=== PATIENT | male | born 1985 | race Two or more races ===

== ENCOUNTER 2019-10-11 08:57 | Inpatient (IN) | payer OTHER ==
[2019-10-11 09:17] VITALS: BMI 30.7
--- NOTE | 2019-10-11 10:19 | HP ---
COWS - Scale Resting Pulse: 0= [place] 80 or Below Sweatin= Chills/Flushing Restless Observation: 1= Difficult to Sit Still Pupil Size: 1= Pupils >than Normal Bone or Joint Aches: 2= Severe Diffuse Aches Runny Nose/ Eye Tearin= Runny Nose/Eyes GI Upset > 30mins: 2= Nausea/Diarrhea Tremor Observation: 2= Slight Tremor Visible Yawning Observation: 2= >3x During Session Anxiety or Irritability: 2=Irritable/Anxious Goose Flesh Skin: 0=Smooth Skin COWS Score: 15 CIWA Score Nausea/Vomitin Muscle Tremors: 3 Anxiety: 3 Agitation: 3 Paroxysmal Sweats: 1-Minimal Palms Moist Orientation: 0-Oriented Tacttile Disturbances: 1-Very Mild Itch/Numbness Auditory Disturbances: 0-None Visual Disturbances: 0-None Headache: 2-Mild CIWA-Ar Total Score: 15 - Admission Criteria OASAS Guidelines: Admission for Medically Managed Detox: Requires at least one of the followin. CIWA greater than 12 2. Seizures within the past 24 hours 3. Delirium tremens within the past 24 hours 4. Hallucinations within the past 24 hours 5. Acute intervention needed for co occurring medical disorder 6. Acute intervention needed for co occurring psychiatric disorder 7. Severe withdrawal that cannot be handled at a lower level of care (continued vomiting, continued diarrhea, abnormal vital signs) requiring intravenous medication and/or fluids 8. 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 Hepatobiliary: Yes: Hepatitis C Psych: Yes: Anxiety, Depression, Other (insomnia) - Smoking History Smoking history: Current every day smoker Have you smoked in the past 12 months: Yes Aproximately how many cigarettes per day: 20 - Alcohol/Substance Use Hx Alcohol Use: Yes (2 beers per day) History of Substance Use: reports: Heroin, Prescription - Social History Usual Living Arrangement: Yes: [employer] Occupation: unemplyoed History of Recent Travel: No Admission ROS [facility] - HPI Chief Complaint: i need help to stop using heroin,xanax,cocaine abused Allergies/Adverse Reactions: Allergies Allergy/AdvReac Type Severity Reaction Status Date / Time No Known Allergies Allergy Verified 10/11/19 09:13 History of Present Illness: this 34 years old male with heroin,xanax,dependence,cocaine abused,seeking help, withdrawal symptom multiple admissions in detox,last detox 05/22/19 to 05/25/19 not completed syncope denied seizure nicotine dependence hepatitis c longest sobriety 6 months plan for rehab after detox - Ebola screening Have you traveled outside of the country in the last 21 days: No Have you had contact with anyone from an Ebola affected area: No - Review of Systems Constitutional: Chills, Loss of Appetite, Malaise, Night Sweats, Changes in sleep, Weakness EENT: reports: Tearing, Nose Congestion Respiratory: reports: No Symptoms reported Cardiac: reports: No Symptoms Reported GI: reports: Nausea, Vomiting, Abdominal cramping : reports: No Symptoms Reported Musculoskeletal: reports: Back Pain, Joint Pain, Muscle Pain Integumentary: reports: Dryness Neuro: reports: Headache, Tremors Endocrine: reports: No Symptoms Reported Hematology: reports: No Symptoms Reported Psychiatric: reports: No Sypmtoms Reported, Judgement Intact, Mood/Affect Appropiate, Orientated x3, Anxious, Depressed, other (insomnia) Patient History - Patient Medical History Hx Anemia: No Hx Asthma: Yes Hx Chronic Obstructive Pulmonary Disease (COPD): No Hx Cancer: No Hx Cardiac Disorders: No Hx Congestive Heart Failure: No Hx Hypertension: No Hx Hypercholesterolemia: No Hx Pacemaker: No HX Cerebrovascular Accident: No Hx Seizures: No Hx Dementia: No Hx Diabetes: No Hx Gastrointestinal Disorders: No Hx Liver Disease: Yes (Hep C ) Hx Genitourinary Disorders: No Hx Sexually Transmitted Disorders: No Hx Renal Disease (ESRD): No Hx Thyroid Disease: No Hx Human Immunodeficiency Virus (HIV): No (Negative tested about a year ago in 2019) Hx Hepatitis C: Yes (not treated ) Hx Depression: Yes Hx Suicide Attempt: No Hx Bipolar Disorder: No Hx Schizophrenia: No Other Medical History: no suicidal,no homicidal - Patient Surgical History Past Surgical History: No Hx Neurologic Surgery: No Hx Cataract Extraction: No Hx Cardiac Surgery: No Hx Lung Surgery: No Hx Breast Surgery: No Hx Breast Biopsy: No Hx Abdominal Surgery: No Hx Appendectomy: No Hx Cholecystectomy: No Hx Genitourinary Surgery: No Hx Section: No Hx Orthopedic Surgery: No Anesthesia Reaction: No - PPD History Previous Implant?: Yes Documented Results: Negative w/o proof Implanted On Prior [facility] Admission?: Yes Date: 11/24/17 Results: 00mm PPD to be Administered?: Yes - Smoking Cessation Smoking history: Current every day smoker Have you smoked in the past 12 months: Yes Aproximately how many cigarettes per day: 20 Cigars Per Day: 0 Hx Chewing Tobacco Use: No Initiated information on smoking cessation: Yes 'Breaking Loose' booklet given: 10/11/19 - Substance & Tx. History Hx Alcohol Use: No Hx Substance Use: Yes Substance Use Type: Heroin, Tranquilizers Hx Substance Use Treatment: Yes (last [facility] 05/22/19 to 05/25/19) - Substances abused Heroin Substance route: Injection Frequency: Daily Amount used: 25-30 bags Age of first use: 26 Date of last use: 10/10/19 Alprazolam (Xanax) Substance route: Oral Frequency: Daily Amount used: 6mg (3) 2mg pills) Age of first use: 26 Date of last use: 10/10/19 Cocaine Substance route: Injection Frequency: 1-2 times per week Amount used: 20$ Age of first use: 16 Date of last use: 10/10/19 Admission Physical Exam BHS - Vital Signs Vital Signs: Vital Signs - 24 hr 10/11/19 09:14 Temperature 96.9 F L Pulse Rate 74 Respiratory 20 Rate Blood Pressure 111/75 - Physical General Appearance: Yes: Moderate Distress, Tremorous, Irritable, Sweating, Anxious HEENTM: Yes: Normocephalic, ESHA, Pharynx Normal Respiratory: Yes: Lungs Clear, Normal Breath Sounds, No Respiratory Distress Neck: Yes: Within Normal Limits, Supple, Trachea in good position Breast: Yes: Within Normal Limits Cardiology: Yes: Within Normal Limits, Regular Rhythm, Regular Rate, S1, S2 Abdominal: Yes: Within Normal Limits, Normal Bowel Sounds, Non Tender, Flat, Soft Genitourinary: Yes: Within Normal Limits Back: Yes: Muscle Spasm Musculoskeletal: Yes: Back pain, Joint Stiffness, Muscle Pain Extremities: Yes: Within Normal Limits, Normal Range of Motion, Tremors 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, Fully Oriented, Alert, Motor Strength 5/5 Integumentary: Yes: Dry, Track [place] Lymphatic: Yes: Within Normal Limits - Diagnostic (1) Opioid dependence with withdrawal Current Visit: Yes Status: Acute (2) Cocaine dependence Current Visit: Yes Status: Acute Qualifiers: Substance use status: uncomplicated Qualified Code(s): F14.20 - Cocaine dependence, uncomplicated (3) Sedative, hypnotic or anxiolytic dependence with withdrawal, uncomplicated Current Visit: Yes Status: Acute (4) Hepatitis C Current Visit: No Status: Chronic Qualifiers: Viral hepatitis chronicity: chronic Hepatic coma status: without hepatic coma Qualified Code(s): B18.2 - Chronic viral hepatitis C Comment: not treated (5) Nicotine dependence Current Visit: No Status: Chronic Qualifiers: Nicotine product type: cigarettes Substance use status: in withdrawal Qualified Code(s): F17.213 - Nicotine dependence, cigarettes, with withdrawal (6) Weight loss Current Visit: No Status: Chronic (7) IVDU (intravenous drug user) Current Visit: Yes Status: Acute Cleared for Admission S - Detox or Rehab [facility] Level of Care: Medically Managed Detox Regimen/Protocol: Methadone Breathalyzer - Breathalyzer Breathalyzer: 0 POC Urine test - Test device test lot number: not applicable Urine Drug Screen - Test Device Lot number: [id number] Expiration date: 05/02/21 - Control Is test valid?: Yes - Results Drug screen NEGATIVE: No Urine drug screen results: MADI-Cocaine, FEN-Fentanyl, MOP-Opiates Inpatient Rehab Admission - Rehab Decision to Admit Inpatient rehab admission?: No
[2019-10-11] MEDS ORDERED: ACETAMINOPHEN 325 MG TABLET (FP) PO PRN ×2 (10:33)
[2019-10-11] MEDS ORDERED: hydrOXYzine PAMOATE 25 MG CAPSULE (FP) PO PRN (10:33)
[2019-10-11] MEDS ORDERED: MENTHOL/PHENOL 1 EACH UD MM PRN (10:33)
[2019-10-11] MEDS ORDERED: BISMUTH SUBSALICYLATE 262 MG/15 ML BTL PO PRN (10:33)
[2019-10-11] MEDS ORDERED: NICOTINE POLACRILEX 2 MG GUM BUC PRN (10:33)
[2019-10-11] MEDS ORDERED: cloNIDine HCL 0.1 MG TABLET PO PRN (10:33)
[2019-10-11] MEDS ORDERED: METHOCARBAMOL 500 MG TABLET PO PRN (10:33)
[2019-10-11] MEDS ORDERED: MAGNESIUM CITRATE 300 ML BOTTLE PO PRN (10:33)
[2019-10-11] MEDS ORDERED: MAGNESIUM HYDROX 2400MG/30ML ORAL SUSPENSION 30 ML CUP PO PRN (10:33)
[2019-10-11] MEDS ORDERED: MAG HYDROX/AL HYDROX/SIMETH 30 ML UNIT-DOSE CUP PO PRN (10:33)
[2019-10-11] MEDS ORDERED: METHADONE HCL 10 MG TABLET (FOR DETOX USE ONLY) PO ONE (12:05)
[2019-10-11] MEDS: diazePAM 5 MG TABLET PO PRN ×2 (13:13→22:14)
[2019-10-11 14:04] LABS: HEMATOCRIT 38.8 % (35.4-49); HEMOGLOBIN 12.7 GM/dL (11.7-16.9); MCHC 32.6 g/dl (32.0-35.9); MEAN CELL VOLUME 79.6 fl (80-96); MEAN PLT VOLUME 9.7 fl (7.5-11.1); PLATELET COUNT 219 K/MM3 (134-434); RBC 4.88 M/mm3 (4.00-5.60); RDW 15.3 % (11.9-15.9); WHITE BLOOD COUNT 7.5 K/mm3 (4.0-10.0)
[2019-10-11 14:31] LABS: ALBUMIN 3.6 g/dl (3.4-5.0); BILIRUBIN,TOTAL 0.6 mg/dL (0.2-1); BLOOD UREA NITROGEN 19.5 mg/dL (7-18); CALCIUM 8.5 mg/dL (8.5-10.1); CREATININE 0.9 mg/dL (0.55-1.3); POTASSIUM 4.1 mmol/L (3.5-5.1)
--- NOTE | 2019-10-11 16:08 | CONSULT ---
[facility] Psychiatric Consult - Data Date of interview: 10/11/19 Admission source: [facility] Identifying data: Patient is a 34 year old male, father of three , unemployed, domiciled, and is supported with food stamps. This is one of multiple admissions for patient. Patient admitted to for opiate and cocaine dependence. Substance Abuse History: Smoking Cessation. Smoking history: Current every day smoker. Have you smoked in the past 12 months: Yes. Aproximately how many cigarettes per day: 20. Cigars Per Day: 0. Hx Chewing Tobacco Use: No. Initiated information on smoking cessation: Yes. 'Breaking Loose' booklet given : 10/11/19. - Substance & Tx. History. Hx Alcohol Use: No. Hx Substance Use: Yes. Substance Use Type: Heroin, Tranquilizers. Hx Substance Use Treatment: Yes (last [facility] 05/22/19 to 05/25/19). - Substances abused. Heroin. Substance route: Injection. Frequency: Daily. Amount used: 25-30 bags. Age of first use: 26. Date of last use: 10/10/19. Alprazolam (Xanax). Substance route: Oral. Frequency: Daily. Amount used: 6mg (3) 2mg pills). Age of first use: 26. Date of last use: 10/10/19. Cocaine. Substance route : Injection. Frequency: 1-2 times per week. Amount used: 20$. Age of first use: 16. Date of last use: 10/10/19 Medical History: Medical profile is remarkable for hepatitis C and a history of treatment for chlamydia Psychiatric History: Patient denies history of psychiatric hospitalization and suicide attempt. Mr. Golden reports seeing an outpatient psychiatrist when he was 15 years of age who prescribed him seroquel and other psychotropic medications he can't recall. He reports being diagnosed with MDD. States he saw the psychiatrist one time and never returned. As per Dr. Villalpando note patient reported a history of one psychiatric hospitalization at [facility] at 23 years of age after a suicide attempt by wrist cutting. Patient currently denies OPD and is not on psychotropic medications. Mr. Golden reports difficulty sleeping which is resolved when he accepts seroquel. At present patient denies suicidal/homicidal ideation. Physical/Sexual Abuse/Trauma History: denies. Mental Status Exam - Mental Status Exam Alert and Oriented to: Time, Place, Person Cognitive Function: Good Patient Appearance: Well Groomed Mood: Withdrawn Affect: Mood Congruent Patient Behavior: Fatigued Speech Pattern: Appropriate Voice Loudness: Normal Thought Process: Goal Oriented Thought Disorder: Not Present Hallucinations: Denies Suicidal Ideation: Denies Homicidal Ideation: Denies Insight/Judgement: Poor Sleep: Poorly Appetite: Fair Muscle strength/Tone: Normal Gait/Station: Normal Psychiatric Findings - Problem List ([place] 1, 2,3) (1) Substance-induced sleep disorder Status: Acute (2) Cocaine dependence Status: Acute Qualifiers: Substance use status: uncomplicated Qualified Code(s): F14.20 - Cocaine dependence, uncomplicated (3) Opioid dependence with withdrawal Status: Acute (4) Sedative, hypnotic or anxiolytic dependence with withdrawal, uncomplicated Status: Acute (5) Substance induced mood disorder Status: Suspected - Initial Treatment Plan Initial Treatment Plan: Psychoeducation provided. Detoxification in progress. Will order Seroquel 100mg HS. Benefits and side effects discussed. Verbal consent given.
[2019-10-11] MEDS: AMMONIUM LACTATE 12% LOTION 225 GM BOTTLE TP SCH (22:11)
[2019-10-11] MEDS: THIAMINE HCL 100 MG TABLET (FP) PO SCH (22:12)
[2019-10-11] MEDS: QUEtiapine FUMARATE 100 MG TABLET (FP) PO SCH (22:12)
[2019-10-11] MEDS: MELATONIN 5 MG TABLETS PO PRN (22:15)
[2019-10-12] MEDS ORDERED: METHADONE HCL 5 MG TABLET (FOR DETOX USE ONLY) ONE (08:42)
[2019-10-12] MEDS ORDERED: METHADONE HCL 10 MG TABLET (FOR DETOX USE ONLY) ONE (08:42)
[2019-10-12] MEDS ORDERED: METHADONE (DETOX) 20 MG, METHADONE (DETOX) 5 MG PO ONE (10:00)
[2019-10-12] MEDS: PRENATAL VITAMINS W/ FOLIC ACID TABLET (FP) PO SCH (10:14)
[2019-10-12] MEDS: diazePAM 5 MG TABLET PO PRN ×3 (10:14→22:17)
[2019-10-12] MEDS: AMMONIUM LACTATE 12% LOTION 225 GM BOTTLE TP SCH ×2 (10:15→22:19)
--- NOTE | 2019-10-12 10:29 | PN ---
[facility] CIWA - CIWA Score Nausea/Vomitin-Mild Nausea/No Vomiting Muscle Tremors: 3 Anxiety: 3 Agitation: 3 Paroxysmal Sweats: 1-Minimal Palms Moist Orientation: 0-Oriented Tacttile Disturbances: 0-None Auditory Disturbances: 0-None Visual Disturbances: 0-None Headache: 0-None Present CIWA-Ar Total Score: 11 BHS COWS - Scale Resting Pulse: 1= [place] 81-100 Sweatin= Chills/Flushing Restless Observation: 1= Difficult to Sit Still Pupil Size: 1= Pupils >than Normal Bone or Joint Aches: 1= Mild Discomfort Runny Nose/ Eye Tearin= Nasal Congestion GI Upset > 30mins: 1= Stomach Cramp Tremor Observation of Outstretched Hands: 1= Tremor [place], Not Seen Yawning Observation: 1= 1-2x During Session Anxiety or Irritability: 1=Feels Anxious/Irritable Goose Flesh Skin: 0=Smooth Skin COWS Score: 10 [facility] Progress Note (SOAP) Subjective: Pt admitted with heroin,xanax dependence,cocaine use disorders.Pt states doing well with the detox Vital Signs - 24 hr 10/11/19 10/11/19 10/11/19 13:10 17:48 22:36 Temperature 96.7 F L 98.4 F 97.7 F Pulse Rate 68 72 81 Respiratory 18 18 18 Rate Blood Pressure 103/68 102/57 L 98/55 L 10/12/19 10/12/19 10/12/19 00:26 03:30 05:50 Temperature 97.1 F L Pulse Rate 54 L Respiratory 18 16 18 Rate Blood Pressure 95/59 L 10/12/19 09:12 Temperature 96.7 F L Pulse Rate 68 Respiratory 18 Rate Blood Pressure 92/50 L Laboratory Tests 10/11/19 10/11/19 10/11/19 10:55 10:55 10:55 WBC 7.5 RBC 4.88 Hgb 12.7 Hct 38.8 MCV 79.6 L MCH 26.0 MCHC 32.6 RDW 15.3 Plt Count 219 D MPV 9.7 D Sodium 134 L Potassium 4.1 Chloride 101 Carbon Dioxide 25 Anion Gap 7 L BUN 19.5 H Creatinine 0.9 Est GFR (CKD-EPI)AfAm 126.90 Est GFR (CKD-EPI)NonAf 109.49 Random Glucose 98 Calcium 8.5 Total Bilirubin 0.6 AST 46 H ALT 62 H Alkaline Phosphatase 107 Total Protein 8.0 Albumin 3.6 RPR Titer Nonreactive labs and VS WNL a/p: continue detox protocols for heroin,xanax dependence. Pt would like ensure- ordered
[2019-10-12] MEDS: QUEtiapine FUMARATE 100 MG TABLET (FP) PO SCH (22:16)
[2019-10-12] MEDS: THIAMINE HCL 100 MG TABLET (FP) PO SCH (22:16)
[2019-10-12] MEDS: MELATONIN 5 MG TABLETS PO PRN (22:16)
[2019-10-13] MEDS ORDERED: METHADONE HCL 10 MG TABLET (FOR DETOX USE ONLY) PO ONE (10:00)
--- NOTE | 2019-10-13 10:19 | PN ---
[facility] CIWA - CIWA Score Nausea/Vomitin-No Nausea/No Vomiting Muscle Tremors: 2 Anxiety: 3 Agitation: 0-Normal Activity Paroxysmal Sweats: 3 Orientation: 0-Oriented Tacttile Disturbances: 1-Very Mild Itch/Numbness Auditory Disturbances: 0-None Visual Disturbances: 0-None Headache: 2-Mild CIWA-Ar Total Score: 11 BHS COWS - Scale Resting Pulse: 0= [place] 80 or Below Sweatin= Beads of Sweat on Face Restless Observation: 1= Difficult to Sit Still Pupil Size: 0= Normal to Room Light Bone or Joint Aches: 2= Severe Diffuse Aches Runny Nose/ Eye Tearin= None GI Upset > 30mins: 0= None Tremor Observation of Outstretched Hands: 2= Slight Tremor Visible Yawning Observation: 1= 1-2x During Session Anxiety or Irritability: 2=Irritable/Anxious Goose Flesh Skin: 0=Smooth Skin COWS Score: 11 S Progress Note (SOAP) Subjective: c/o anxiety, shakes, headache, sweats, and irritability. Objective: 10/13/19 10:18 Vital Signs 10/13/19 10/13/19 10/13/19 03:30 06:38 09:28 Temperature 97.9 F 97 F L Pulse Rate 54 L 73 Respiratory 18 18 16 Rate Blood Pressure 98/50 L 98/60 Laboratory Last Values WBC 7.5 K/mm3 (4.0-10.0) 10/11/19 10:55 RBC 4.88 M/mm3 (4.00-5.60) 10/11/19 10:55 Hgb 12.7 GM/dL (11.7-16.9) 10/11/19 10:55 Hct 38.8 % (35.4-49) 10/11/19 10:55 MCV 79.6 fl (80-96) L 10/11/19 10:55 MCH 26.0 pg (25.7-33.7) 10/11/19 10:55 MCHC 32.6 g/dl (32.0-35.9) 10/11/19 10:55 RDW 15.3 % (11.9-15.9) 10/11/19 10:55 Plt Count 219 K/MM3 (134-434) D 10/11/19 10:55 MPV 9.7 fl (7.5-11.1) D 10/11/19 10:55 Sodium 134 mmol/L (136-145) L 10/11/19 10:55 Potassium 4.1 mmol/L (3.5-5.1) 10/11/19 10:55 Chloride 101 mmol/L (98-107) 10/11/19 10:55 Carbon Dioxide 25 mmol/L (21-32) 10/11/19 10:55 Anion Gap 7 MMOL/L (8-16) L 10/11/19 10:55 BUN 19.5 mg/dL (7-18) H 10/11/19 10:55 Creatinine 0.9 mg/dL (0.55-1.3) 10/11/19 10:55 Est GFR (CKD-EPI)AfAm 126.90 10/11/19 10:55 Est GFR (CKD-EPI)NonAf 109.49 10/11/19 10:55 Random Glucose 98 mg/dL (74-106) 10/11/19 10:55 Calcium 8.5 mg/dL (8.5-10.1) 10/11/19 10:55 Total Bilirubin 0.6 mg/dL (0.2-1) 10/11/19 10:55 AST 46 U/L (15-37) H 10/11/19 10:55 ALT 62 U/L (13-61) H 10/11/19 10:55 Alkaline Phosphatase 107 U/L (45-117) 10/11/19 10:55 Total Protein 8.0 g/dl (6.4-8.2) 10/11/19 10:55 Albumin 3.6 g/dl (3.4-5.0) 10/11/19 10:55 RPR Titer Nonreactive (NONREACTIVE) 10/11/19 10:55 Labs noted. Assessment: 10/13/19 10:18 AOX3, in no acute respiratory distress. Full ROM, ambulating in the unit. Withdrawal symptoms. Plan: continue detox. Increase fluids.
[2019-10-13] MEDS: PRENATAL VITAMINS W/ FOLIC ACID TABLET (FP) PO SCH (10:25)
[2019-10-13] MEDS: diazePAM 5 MG TABLET PO PRN ×3 (10:25→22:10)
[2019-10-13] MEDS: AMMONIUM LACTATE 12% LOTION 225 GM BOTTLE TP SCH ×2 (10:27→22:10)
[2019-10-13] MEDS: IBUPROFEN 400 MG TABLET (FP) PO PRN (16:58)
[2019-10-13] MEDS: QUEtiapine FUMARATE 100 MG TABLET (FP) PO SCH (22:10)
[2019-10-13] MEDS: THIAMINE HCL 100 MG TABLET (FP) PO SCH (22:10)
[2019-10-14] MEDS: diazePAM 5 MG TABLET PO PRN ×2 (05:51→10:14)
[2019-10-14] MEDS ORDERED: METHADONE HCL 5 MG TABLET (FOR DETOX USE ONLY) ONE (08:36)
[2019-10-14] MEDS ORDERED: METHADONE HCL 10 MG TABLET (FOR DETOX USE ONLY) ONE (08:36)
[2019-10-14] MEDS ORDERED: METHADONE (DETOX) 10 MG, METHADONE (DETOX) 5 MG PO ONE (10:00)
[2019-10-14] MEDS: PRENATAL VITAMINS W/ FOLIC ACID TABLET (FP) PO SCH (10:13)
[2019-10-14] MEDS: AMMONIUM LACTATE 12% LOTION 225 GM BOTTLE TP SCH ×2 (10:13→22:44)
--- NOTE | 2019-10-14 15:15 | PN ---
S CIWA - CIWA Score Nausea/Vomitin-No Nausea/No Vomiting Muscle Tremors: 2 Anxiety: 3 Agitation: 1-Slight > Activity Paroxysmal Sweats: 2 Orientation: 0-Oriented Tacttile Disturbances: 0-None Auditory Disturbances: 0-None Visual Disturbances: 0-None Headache: 0-None Present CIWA-Ar Total Score: 8 BHS COWS - Scale Resting Pulse: 0= [place] 80 or Below Sweatin= Chills/Flushing Restless Observation: 0= Sits Still Pupil Size: 1= Pupils >than Normal Bone or Joint Aches: 1= Mild Discomfort Runny Nose/ Eye Tearin= None GI Upset > 30mins: 1= Stomach Cramp Tremor Observation of Outstretched Hands: 2= Slight Tremor Visible Yawning Observation: 1= 1-2x During Session Anxiety or Irritability: 1=Feels Anxious/Irritable Goose Flesh Skin: 0=Smooth Skin COWS Score: 8 S Progress Note (SOAP) Subjective: 34 years old male admitted on 10/11/19 for benzo and opiate withdrawal sx management treating with clonidine prn and methadone detox regimen ate breakfast and lunch feeling ok today encourage to attend behavior and psychosocial therapies while in detox Objective: 10/14/19 15:14 Vital Signs Temperature 98.8 F 10/14/19 13:42 Pulse Rate 74 10/14/19 13:42 Respiratory Rate 18 10/14/19 13:42 Blood Pressure 103/70 10/14/19 13:42 O2 Sat by Pulse Oximetry (%) Laboratory Last Values WBC 7.5 K/mm3 (4.0-10.0) 10/11/19 10:55 RBC 4.88 M/mm3 (4.00-5.60) 10/11/19 10:55 Hgb 12.7 GM/dL (11.7-16.9) 10/11/19 10:55 Hct 38.8 % (35.4-49) 10/11/19 10:55 MCV 79.6 fl (80-96) L 10/11/19 10:55 MCH 26.0 pg (25.7-33.7) 10/11/19 10:55 MCHC 32.6 g/dl (32.0-35.9) 10/11/19 10:55 RDW 15.3 % (11.9-15.9) 10/11/19 10:55 Plt Count 219 K/MM3 (134-434) D 10/11/19 10:55 MPV 9.7 fl (7.5-11.1) D 10/11/19 10:55 Sodium 134 mmol/L (136-145) L 10/11/19 10:55 Potassium 4.1 mmol/L (3.5-5.1) 10/11/19 10:55 Chloride 101 mmol/L (98-107) 10/11/19 10:55 Carbon Dioxide 25 mmol/L (21-32) 10/11/19 10:55 Anion Gap 7 MMOL/L (8-16) L 10/11/19 10:55 BUN 19.5 mg/dL (7-18) H 10/11/19 10:55 Creatinine 0.9 mg/dL (0.55-1.3) 10/11/19 10:55 Est GFR (CKD-EPI)AfAm 126.90 10/11/19 10:55 Est GFR (CKD-EPI)NonAf 109.49 10/11/19 10:55 Random Glucose 98 mg/dL (74-106) 10/11/19 10:55 Calcium 8.5 mg/dL (8.5-10.1) 10/11/19 10:55 Total Bilirubin 0.6 mg/dL (0.2-1) 10/11/19 10:55 AST 46 U/L (15-37) H 10/11/19 10:55 ALT 62 U/L (13-61) H 10/11/19 10:55 Alkaline Phosphatase 107 U/L (45-117) 10/11/19 10:55 Total Protein 8.0 g/dl (6.4-8.2) 10/11/19 10:55 Albumin 3.6 g/dl (3.4-5.0) 10/11/19 10:55 RPR Titer Nonreactive (NONREACTIVE) 10/11/19 10:55 lab noted Assessment: 10/14/19 15:15 benzo and opiate withdrawal Plan: clonidine prn and methadone regimen
[2019-10-14] MEDS: IBUPROFEN 400 MG TABLET (FP) PO PRN (17:06)
[2019-10-14] MEDS: QUEtiapine FUMARATE 100 MG TABLET (FP) PO SCH (22:33)
[2019-10-14] MEDS: MELATONIN 5 MG TABLETS PO PRN (22:33)
[2019-10-14] MEDS: THIAMINE HCL 100 MG TABLET (FP) PO SCH (22:33)
[2019-10-15 09:15] VITALS: BP 111/74; PULSE 82; TEMP 97.3
[2019-10-15] MEDS ORDERED: METHADONE HCL 10 MG TABLET (FOR DETOX USE ONLY) PO ONE (10:00)
--- NOTE | 2019-10-15 13:52 | DS ---
[facility] Detox Discharge Summary Admission Date: 10/11/19 Discharge Date: 10/15/19 - History Present History: Opioid Dependence, Sedative Dependence Additional Comments: 34 years old male admitted on 10/11/19 for benzo and opiate withdrawal sx management treated with clonidine prn and methadone detox regimens patient prefers to leave one day early as estimated discharge date of 10/16/19 case discussed with the nurse routine discharge is appropriated patient is alert oriented x 3 respiratory clear lungs bilaterally on auscultation skin warm and dry extremities full range of motion - Physical Exam Results Vital Signs: Vital Signs Temperature 97.3 F L 10/15/19 09:15 Pulse Rate 82 10/15/19 09:15 Respiratory Rate 16 10/15/19 09:15 Blood Pressure 111/74 10/15/19 09:15 O2 Sat by Pulse Oximetry (%) Pertinent Admission Physical Exam Findings: benzo opiate withdrawal Laboratory Last Values WBC 7.5 K/mm3 (4.0-10.0) 10/11/19 10:55 RBC 4.88 M/mm3 (4.00-5.60) 10/11/19 10:55 Hgb 12.7 GM/dL (11.7-16.9) 10/11/19 10:55 Hct 38.8 % (35.4-49) 10/11/19 10:55 MCV 79.6 fl (80-96) L 10/11/19 10:55 MCH 26.0 pg (25.7-33.7) 10/11/19 10:55 MCHC 32.6 g/dl (32.0-35.9) 10/11/19 10:55 RDW 15.3 % (11.9-15.9) 10/11/19 10:55 Plt Count 219 K/MM3 (134-434) D 10/11/19 10:55 MPV 9.7 fl (7.5-11.1) D 10/11/19 10:55 Sodium 134 mmol/L (136-145) L 10/11/19 10:55 Potassium 4.1 mmol/L (3.5-5.1) 10/11/19 10:55 Chloride 101 mmol/L (98-107) 10/11/19 10:55 Carbon Dioxide 25 mmol/L (21-32) 10/11/19 10:55 Anion Gap 7 MMOL/L (8-16) L 10/11/19 10:55 BUN 19.5 mg/dL (7-18) H 10/11/19 10:55 Creatinine 0.9 mg/dL (0.55-1.3) 10/11/19 10:55 Est GFR (CKD-EPI)AfAm 126.90 10/11/19 10:55 Est GFR (CKD-EPI)NonAf 109.49 10/11/19 10:55 Random Glucose 98 mg/dL (74-106) 10/11/19 10:55 Calcium 8.5 mg/dL (8.5-10.1) 10/11/19 10:55 Total Bilirubin 0.6 mg/dL (0.2-1) 10/11/19 10:55 AST 46 U/L (15-37) H 10/11/19 10:55 ALT 62 U/L (13-61) H 10/11/19 10:55 Alkaline Phosphatase 107 U/L (45-117) 10/11/19 10:55 Total Protein 8.0 g/dl (6.4-8.2) 10/11/19 10:55 Albumin 3.6 g/dl (3.4-5.0) 10/11/19 10:55 RPR Titer Nonreactive (NONREACTIVE) 10/11/19 10:55 lab noted - Treatment Hospital Course: Detox Protocol Followed, Detoxed Safely, Responded well, Discharged Condition Good, Rehab Referral Accepted Patient has Accept[facility] - Medication Discharge Medications: Ambulatory Orders Quetiapine Fumarate [Seroquel -] 100 mg PO HS 10/11/19 - Diagnosis (1) Opioid dependence with withdrawal Status: Acute (2) Sedative, hypnotic or anxiolytic dependence with withdrawal, uncomplicated Status: Acute (3) Substance induced mood disorder Status: Suspected (4) Hepatitis C Status: Chronic Qualifiers: Viral hepatitis chronicity: chronic Hepatic coma status: without hepatic coma Qualified Code(s): B18.2 - Chronic viral hepatitis C (5) Nicotine dependence Status: Acute Qualifiers: Nicotine product type: cigarettes Substance use status: in withdrawal Qualified Code(s): F17.213 - Nicotine dependence, cigarettes, with withdrawal - AMA Did Patient Leave Against Medical Advice: No CIWA Score - CIWA Score Nausea/Vomitin-No Nausea/No Vomiting Muscle Tremors: 1-None Visible, but [place] Anxiety: 2 Agitation: 0-Normal Activity Paroxysmal Sweats: 1-Minimal Palms Moist Orientation: 0-Oriented Tacttile Disturbances: 0-None Auditory Disturbances: 0-None Visual Disturbances: 0-None Headache: 0-None Present CIWA-Ar Total Score: 4 COWS (PN) - Opiate Withdrawal Resting Pulse: 1= [place] 81-100 Sweatin= No chills or Flushing Restless Observation: 0= Sits Still Pupil Size: 0= Normal to Room Light Bone or Joint Aches: 0= None Runny Nose/ Eye Tearin= None GI Upset > 30mins: 0= None Tremor Observation of Outstretched Hands: 1= Tremor [place], Not Seen Yawning Observation: 0= None Anxiety or Irritability: 1=Feels Anxious/Irritable Goose Flesh Skin: 0=Smooth Skin COWS Score: 3
[2019-10-16] MEDS ORDERED: METHADONE HCL 5 MG TABLET (FOR DETOX USE ONLY) PO ONE (06:00)
== END 2019-10-15 09:42 | disposition home or self-care (01) | DRG 773 ==
LOC: YASAS 08:57 → Y3N 11:33
PROVIDERS: ADMIT Allergy & Immunology; ATTEND Allergy & Immunology
PROC: HZ2ZZZZ Detoxification Services for Substance Abuse Treatment (ICD-10-PCS; principal; 2019-10-11)
DX: F11.23 Opioid dependence with withdrawal (principal); F13.230 Sedative, hypnotic or anxiolytic dependence with withdrawal, uncomplicated; F14.20 Cocaine dependence, uncomplicated; F17.213 Nicotine dependence, cigarettes, with withdrawal; F19.24 Other psychoactive substance dependence with psychoactive substance-induced mood disorder; F19.282 Other psychoactive substance dependence with psychoactive substance-induced sleep disorder; J45.909 Unspecified asthma, uncomplicated; B18.2 Chronic viral hepatitis C; R63.4 Abnormal weight loss; Z87.438 Personal history of other diseases of male genital organs
CPT/HCPCS: 36415; 80053; 85027; 86593

== ENCOUNTER 2019-12-11 08:16 | Inpatient (IN) | payer OTHER ==
--- NOTE | 2019-12-11 08:32 | BHS.RME ---
Substance Use & Tx History - Substance Use History Opiates (Heroin) Substance amount: 15-20 bags Frequency of use: Daily Substance route: Injection (ex: intravenous or skin popping) Date of Last Use: 12/10/19 Benzodiazepines Substance amount: Xanax 2 mg x 10 tabs Frequency of use: Daily Substance route: Oral Date of Last Use: 12/10/19 - Last Treatment Treatment type: Substance Use Disorder (SUNI) Physical/Psych/Mental Status - Behavior Eye Contact: Decreased - Cooperativeness Cooperativeness: Cooperative - Thinking Thought Processes: Tight Thought content: Future oriented - Physical Health Problems Is patient presently having any pain?: Yes (gnlz body ache) Does patient presently have any injuries (include location): No Does patient currently have a fever: No Is patient : No COWS - Scale Resting Pulse: 0= [place] 80 or Below Sweatin= Chills/Flushing Restless Observation: 1= Difficult to Sit Still Pupil Size: 0= Normal to Room Light Bone or Joint Aches: 2= Severe Diffuse Aches Runny Nose/ Eye Tearin= Runny Nose/Eyes GI Upset > 30mins: 1= Stomach Cramp Tremor Observation: 2= Slight Tremor Visible Yawning Observation: 0= None Anxiety or Irritability: 1=Feels Anxious/Irritable Goose Flesh Skin: 0=Smooth Skin COWS Score: 10
[2019-12-11 08:51] VITALS: BMI 30.7
--- NOTE | 2019-12-11 08:54 | HP ---
COWS - Scale Resting Pulse: 0= [place] 80 or Below Sweatin= Chills/Flushing Restless Observation: 1= Difficult to Sit Still Pupil Size: 0= Normal to Room Light Bone or Joint Aches: 2= Severe Diffuse Aches Runny Nose/ Eye Tearin= Runny Nose/Eyes GI Upset > 30mins: 1= Stomach Cramp Tremor Observation: 2= Slight Tremor Visible Yawning Observation: 0= None Anxiety or Irritability: 1=Feels Anxious/Irritable Goose Flesh Skin: 0=Smooth Skin COWS Score: 10 CIWA Score - Admission Criteria OASAS Guidelines: Admission for Medically Managed Detox: Requires at least one of the followin. CIWA greater than 12 2. Seizures within the past 24 hours 3. Delirium tremens within the past 24 hours 4. Hallucinations within the past 24 hours 5. Acute intervention needed for co occurring medical disorder 6. Acute intervention needed for co occurring psychiatric disorder 7. Severe withdrawal that cannot be handled at a lower level of care (continued vomiting, continued diarrhea, abnormal vital signs) requiring intravenous medication and/or fluids 8. Admitting History and Physical - Admission Chief Complaint: Mr. Golden presents to [facility] requesting detox from heroin and benzos. History of Present Illness: Mr. Golden presents to [facility] requesting detox from heroin and benzos. He as last admitted here between October 11 and October 15 for detox. PMH: Hep C untx PSH: none Psych: none SOC: lives with cousin Legal: no pending cases Substance use history Heroin: 15-20 bags, IV daily, first use age 27y, last use yesterday, no methadone program, no hx of OD Nicotine; one ppd Benzos: Xanax 2 mg x 10 tabs daily, first use age 28 y, last use yesterday Cocaine: denies use History Source: Patient Limitations to Obtaining History: No Limitations - Past Medical History LEASE OPERATOR: Yes: Syncope Hepatobiliary: Yes: Hepatitis C Psych: Yes: Anxiety, Depression, Other (insomnia) - Smoking History Smoking history: Current every day smoker Have you smoked in the past 12 months: Yes Aproximately how many cigarettes per day: 20 - Alcohol/Substance Use Hx Alcohol Use: No History of Substance Use: reports: Heroin, Prescription - Social History Occupation: unemplyoed History of Recent Travel: No Admission ROS BHS - HPI Allergies/Adverse Reactions: Allergies Allergy/AdvReac Type Severity Reaction Status Date / Time No Known Allergies Allergy Verified 12/11/19 08:42 Exam Limitations: No Limitations - Ebola screening Have you traveled outside of the country in the last 21 days: No Have you had contact with anyone from an Ebola affected area: No Have you been sick,other than usual withdrawal symptoms: No Do you have a fever: No - Review of Systems Constitutional: Unintentional Wgt. Loss EENT: reports: No Symptoms Reported Respiratory: reports: No Symptoms reported Cardiac: reports: No Symptoms Reported GI: reports: Nausea : reports: No Symptoms Reported Musculoskeletal: reports: Back Pain Integumentary: reports: No Symptoms Reported Neuro: reports: No Symptoms reported Endocrine: reports: No Symptoms Reported Hematology: reports: No Symptoms Reported Psychiatric: reports: Anxious Patient History - Patient Medical History Hx Anemia: No Hx Asthma: Yes Hx Chronic Obstructive Pulmonary Disease (COPD): No Hx Cancer: No Hx Cardiac Disorders: No Hx Congestive Heart Failure: No Hx Hypertension: No Hx Hypercholesterolemia: No Hx Pacemaker: No HX Cerebrovascular Accident: No Hx Seizures: No Hx Dementia: No Hx Diabetes: No Hx Gastrointestinal Disorders: No Hx Liver Disease: Yes (Hep C , untreated) Hx Genitourinary Disorders: No Hx Sexually Transmitted Disorders: No Hx Renal Disease (ESRD): No Hx Thyroid Disease: No Hx Human Immunodeficiency Virus (HIV): No (Negative tested about a year ago in 2019) Hx Hepatitis C: Yes (not treated ) Hx Depression: Yes Hx Suicide Attempt: No Hx Bipolar Disorder: No Hx Schizophrenia: No - Patient Surgical History Past Surgical History: No Hx Neurologic Surgery: No Hx Cataract Extraction: No Hx Cardiac Surgery: No Hx Lung Surgery: No Hx Breast Surgery: No Hx Breast Biopsy: No Hx Abdominal Surgery: No Hx Appendectomy: No Hx Cholecystectomy: No Hx Genitourinary Surgery: No Hx Section: No Hx Orthopedic Surgery: No Anesthesia Reaction: No - PPD History Date: 11/24/17 Results: 00mm - Smoking Cessation Smoking history: Current every day smoker Have you smoked in the past 12 months: Yes Aproximately how many cigarettes per day: 20 Cigars Per Day: 0 Hx Chewing Tobacco Use: No Initiated information on smoking cessation: Yes 'Breaking Loose' booklet given: 12/11/19 - Substances abused Heroin Substance route: Injection Frequency: Daily Amount used: 15-20 BAGS Age of first use: 27 Date of last use: 12/10/19 Alprazolam (Xanax) Substance route: Oral Frequency: Daily Amount used: 10 (2mg) Age of first use: 28 Date of last use: 12/10/19 Admission Physical Exam [facility] - Physical General Appearance: Yes: Appropriately Dressed, Anxious HEENTM: Yes: Within Normal Limits Respiratory: Yes: Lungs Clear Neck: Yes: Within Normal Limits Breast: Yes: Breast Exam Deferred Cardiology: Yes: Regular Rate, S1, S2 Abdominal: Yes: Non Tender, Flat, Soft, Decreased BS Genitourinary: Yes: Other (deferred) Back: Yes: Normal Inspection Musculoskeletal: Yes: Within Normal Limits Extremities: Yes: Within Normal Limits Neurological: Yes: Within Normal Limits Integumentary: Yes: Track [place] (no sign of infection) - Diagnostic (1) IVDU (intravenous drug user) Current Visit: Yes Status: Acute (2) Nicotine dependence Current Visit: Yes Status: Acute Qualifiers: Nicotine product type: cigarettes Substance use status: in withdrawal Qualified Code(s): F17.213 - Nicotine dependence, cigarettes, with withdrawal (3) Opioid dependence with withdrawal Current Visit: Yes Status: Acute (4) Sedative, hypnotic or anxiolytic dependence with withdrawal, uncomplicated Current Visit: Yes Status: Chronic Cleared for Admission [facility] - Detox or Rehab [facility] Level of Care: Medically Managed Detox Regimen/Protocol: Methadone Breathalyzer - Breathalyzer Breathalyzer: 0 POC Urine test - Test device test lot number: not applicable Urine Drug Screen - Test Device Lot number: [id number] Expiration date: 05/02/21 - Control Is test valid?: Yes - Results Drug screen NEGATIVE: No Urine drug screen results: MADI-Cocaine, FEN-Fentanyl, MOP-Opiates, BZO- Benzodiazepines Inpatient Rehab Admission - Rehab Decision to Admit Inpatient rehab admission?: No
[2019-12-11] MEDS ORDERED: METHADONE HCL 10 MG TABLET (FOR DETOX USE ONLY) PO ONE (09:41)
[2019-12-11] MEDS ORDERED: IBUPROFEN 400 MG TABLET (FP) PO PRN (09:41)
[2019-12-11] MEDS ORDERED: MENTHOL/PHENOL 1 EACH UD MM PRN (09:41)
[2019-12-11] MEDS ORDERED: MAG HYDROX/AL HYDROX/SIMETH 30 ML UNIT-DOSE CUP PO PRN (09:41)
[2019-12-11] MEDS ORDERED: MAGNESIUM CITRATE 300 ML BOTTLE PO PRN (09:41)
[2019-12-11] MEDS ORDERED: NICOTINE POLACRILEX 2 MG GUM BUC PRN (09:41)
[2019-12-11] MEDS ORDERED: MAGNESIUM HYDROX 2400MG/30ML ORAL SUSPENSION 30 ML CUP PO PRN (09:41)
[2019-12-11] MEDS ORDERED: ACETAMINOPHEN 325 MG TABLET (FP) PO PRN ×2 (09:41)
[2019-12-11] MEDS ORDERED: METHOCARBAMOL 500 MG TABLET PO PRN (09:41)
[2019-12-11] MEDS ORDERED: ONDANSETRON *ODT* 4 MG TABLET SL ONE (10:05)
[2019-12-11] MEDS ORDERED: BISMUTH SUBSALICYLATE 262 MG/15 ML BTL PO PRN (10:31)
[2019-12-11] MEDS: hydrOXYzine PAMOATE 25 MG CAPSULE (FP) PO SCH ×4 (11:45→21:51)
[2019-12-11 11:55] LABS: HEMOGLOBIN 12.7 GM/dL (11.7-16.9); MCH 25.8 pg (25.7-33.7); MCHC 32.4 g/dl (32.0-35.9); MEAN CELL VOLUME 79.5 fl (80-96); MEAN PLT VOLUME 9.3 fl (7.5-11.1); PLATELET COUNT 247 K/MM3 (134-434); WHITE BLOOD COUNT 6.5 K/mm3 (4.0-10.0)
[2019-12-11 12:00] LABS: ALBUMIN 3.4 g/dl (3.4-5.0); BILIRUBIN,TOTAL 0.4 mg/dL (0.2-1); BLOOD UREA NITROGEN 22.2 mg/dL (7-18); CALCIUM 8.7 mg/dL (8.5-10.1); CREATININE 0.9 mg/dL (0.55-1.3); TOT PROT 7.6 g/dl (6.4-8.2)
[2019-12-11] MEDS: PRENATAL VITAMINS W/ FOLIC ACID TABLET (FP) PO SCH (12:35)
[2019-12-11] MEDS: NICOTINE 21 MG/24 HOURS TOPICAL PATCH TD SCH (12:36)
[2019-12-11] MEDS: cloNIDine HCL 0.1 MG TABLET PO PRN (18:27)
[2019-12-11] MEDS: THIAMINE HCL 100 MG TABLET (FP) PO SCH (21:51)
[2019-12-11] MEDS: MELATONIN 5 MG TABLETS PO SCH (21:51)
[2019-12-12] MEDS: hydrOXYzine PAMOATE 25 MG CAPSULE (FP) PO SCH ×5 (05:42→22:58)
[2019-12-12] MEDS: cloNIDine HCL 0.1 MG TABLET PO PRN (05:44)
[2019-12-12] MEDS ORDERED: METHADONE HCL 5 MG TABLET (FOR DETOX USE ONLY) ONE (08:56)
[2019-12-12] MEDS ORDERED: METHADONE HCL 10 MG TABLET (FOR DETOX USE ONLY) ONE (08:57)
--- NOTE | 2019-12-12 09:57 | PN ---
BHS COWS - Scale Resting Pulse: 0= [place] 80 or Below Sweatin= Chills/Flushing Restless Observation: 1= Difficult to Sit Still Pupil Size: 0= Normal to Room Light Bone or Joint Aches: 2= Severe Diffuse Aches Runny Nose/ Eye Tearin= Nasal Congestion GI Upset > 30mins: 1= Stomach Cramp Tremor Observation of Outstretched Hands: 1= Tremor [place], Not Seen Yawning Observation: 1= 1-2x During Session Anxiety or Irritability: 2=Irritable/Anxious Goose Flesh Skin: 0=Smooth Skin COWS Score: 10 BHS Progress Note (SOAP) Subjective: sweats shakes irritable agitation body aches interrupted sleep Objective: 12/12/19 09:53 Vital Signs Temperature 97.9 F 12/12/19 05:35 Pulse Rate 55 L 12/12/19 05:35 Respiratory Rate 18 12/12/19 05:35 Blood Pressure 106/63 12/12/19 05:35 O2 Sat by Pulse Oximetry (%) Laboratory Tests 12/11/19 12/11/19 12/11/19 09:30 09:30 09:30 WBC 6.5 RBC 4.90 Hgb 12.7 Hct 39.0 MCV 79.5 L MCH 25.8 MCHC 32.4 RDW 15.0 Plt Count 247 MPV 9.3 Sodium 137 Potassium 4.0 Chloride 102 Carbon Dioxide 30 Anion Gap 5 L BUN 22.2 H Creatinine 0.9 Est GFR (CKD-EPI)AfAm 126.90 Est GFR (CKD-EPI)NonAf 109.49 Random Glucose 92 Calcium 8.7 Total Bilirubin 0.4 AST 44 H ALT 67 H Alkaline Phosphatase 93 Total Protein 7.6 Albumin 3.4 RPR Titer Nonreactive aaox3 ambulating no acute distress Assessment: 12/12/19 09:56 withdrawals Plan: continue detox increase fluids
[2019-12-12] MEDS ORDERED: METHADONE (DETOX) 20 MG, METHADONE (DETOX) 5 MG PO ONE (10:00)
[2019-12-12] MEDS: PRENATAL VITAMINS W/ FOLIC ACID TABLET (FP) PO SCH (10:43)
[2019-12-12] MEDS: NICOTINE 21 MG/24 HOURS TOPICAL PATCH TD SCH (10:44)
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
[2019-12-12] MEDS ORDERED: QUEtiapine FUMARATE 100 MG TABLET (FP) PO PRN (14:00)
[2019-12-12] MEDS: THIAMINE HCL 100 MG TABLET (FP) PO SCH (22:07)
[2019-12-12] MEDS: MELATONIN 5 MG TABLETS PO SCH (22:58)
[2019-12-13] MEDS: hydrOXYzine PAMOATE 25 MG CAPSULE (FP) PO SCH ×2 (07:02→10:15)
[2019-12-13] MEDS ORDERED: METHADONE HCL 10 MG TABLET (FOR DETOX USE ONLY) PO ONE (10:00)
[2019-12-13] MEDS: PRENATAL VITAMINS W/ FOLIC ACID TABLET (FP) PO SCH (10:15)
[2019-12-13] MEDS: NICOTINE 21 MG/24 HOURS TOPICAL PATCH TD SCH (10:15)
--- NOTE | 2019-12-13 10:33 | PN ---
BHS COWS - Scale Resting Pulse: 0= [place] 80 or Below Sweatin= No chills or Flushing Restless Observation: 1= Difficult to Sit Still Pupil Size: 1= Pupils >than Normal Bone or Joint Aches: 1= Mild Discomfort Runny Nose/ Eye Tearin= Nasal Congestion GI Upset > 30mins: 1= Stomach Cramp Tremor Observation of Outstretched Hands: 2= Slight Tremor Visible Yawning Observation: 1= 1-2x During Session Anxiety or Irritability: 2=Irritable/Anxious Goose Flesh Skin: 0=Smooth Skin COWS Score: 10 BHS Progress Note (SOAP) Subjective: alert,irritable,anxioius,interrupted sleep,pain in the body and back Objective: 12/13/19 10:31 Vital Signs Temperature 98.1 F 12/13/19 06:35 Pulse Rate 50 L 12/13/19 06:35 Respiratory Rate 18 12/13/19 06:35 Blood Pressure 100/52 L 12/13/19 06:35 O2 Sat by Pulse Oximetry (%) Laboratory Last Values WBC 6.5 K/mm3 (4.0-10.0) 12/11/19 09:30 RBC 4.90 M/mm3 (4.00-5.60) 12/11/19 09:30 Hgb 12.7 GM/dL (11.7-16.9) 12/11/19 09:30 Hct 39.0 % (35.4-49) 12/11/19 09:30 MCV 79.5 fl (80-96) L 12/11/19 09:30 MCH 25.8 pg (25.7-33.7) 12/11/19 09:30 MCHC 32.4 g/dl (32.0-35.9) 12/11/19 09:30 RDW 15.0 % (11.9-15.9) 12/11/19 09:30 Plt Count 247 K/MM3 (134-434) 12/11/19 09:30 MPV 9.3 fl (7.5-11.1) 12/11/19 09:30 Sodium 137 mmol/L (136-145) 12/11/19 09:30 Potassium 4.0 mmol/L (3.5-5.1) 12/11/19 09:30 Chloride 102 mmol/L (98-107) 12/11/19 09:30 Carbon Dioxide 30 mmol/L (21-32) 12/11/19 09:30 Anion Gap 5 MMOL/L (8-16) L 12/11/19 09:30 BUN 22.2 mg/dL (7-18) H 12/11/19 09:30 Creatinine 0.9 mg/dL (0.55-1.3) 12/11/19 09:30 Est GFR (CKD-EPI)AfAm 126.90 12/11/19 09:30 Est GFR (CKD-EPI)NonAf 109.49 12/11/19 09:30 Random Glucose 92 mg/dL (74-106) 12/11/19 09:30 Calcium 8.7 mg/dL (8.5-10.1) 12/11/19 09:30 Total Bilirubin 0.4 mg/dL (0.2-1) 12/11/19 09:30 AST 44 U/L (15-37) H 12/11/19 09:30 ALT 67 U/L (13-61) H 12/11/19 09:30 Alkaline Phosphatase 93 U/L (45-117) 12/11/19 09:30 Total Protein 7.6 g/dl (6.4-8.2) 12/11/19 09:30 Albumin 3.4 g/dl (3.4-5.0) 12/11/19 09:30 RPR Titer Nonreactive (NONREACTIVE) 12/11/19 09:30 Assessment: 12/13/19 10:31 withdrawal symptom Plan: continue detox methadone regimen,bun elevated probably dehydration,alt,ast elevated,encourage oral fluid,repeat cmp in am
[2019-12-13 10:59] VITALS: BP 166/68; PULSE 74; TEMP 97.5
--- NOTE | 2019-12-13 13:37 | PN ---
S Progress Note Note: patient did not want to complete treatment due to personal issue,high risks of relapsing explained,and understood, singed release ama ,advise to call 911 if not feeling well
--- NOTE | 2019-12-13 13:51 | DS ---
[facility] Detox Discharge Summary Admission Date: 12/11/19 Discharge Date: 12/13/19 - History Present History: Opioid Dependence, Sedative Dependence Additional Comments: alert,oriented x 3 ambulation on the unit no abdominal pain patient had family emergency problem,personal issue,could not complete treatment,high risk of relapsing explained,understood, advise to call 911 if not feeling well, patient signed release ama left the unit in stable condition total time spent on discharge 30 mins Pertinent Past History: nicotine dependence - Physical Exam Results Vital Signs: Vital Signs Temperature 97.5 F L 12/13/19 09:17 Pulse Rate 74 12/13/19 09:17 Respiratory Rate 19 12/13/19 09:17 Blood Pressure 166/68 12/13/19 09:17 O2 Sat by Pulse Oximetry (%) Pertinent Admission Physical Exam Findings: withdrawal signs and symptom Vital Signs Temperature 97.5 F L 12/13/19 09:17 Pulse Rate 74 12/13/19 09:17 Respiratory Rate 19 12/13/19 09:17 Blood Pressure 166/68 12/13/19 09:17 O2 Sat by Pulse Oximetry (%) Laboratory Last Values WBC 6.5 K/mm3 (4.0-10.0) 12/11/19 09:30 RBC 4.90 M/mm3 (4.00-5.60) 12/11/19 09:30 Hgb 12.7 GM/dL (11.7-16.9) 12/11/19 09:30 Hct 39.0 % (35.4-49) 12/11/19 09:30 MCV 79.5 fl (80-96) L 12/11/19 09:30 MCH 25.8 pg (25.7-33.7) 12/11/19 09:30 MCHC 32.4 g/dl (32.0-35.9) 12/11/19 09:30 RDW 15.0 % (11.9-15.9) 12/11/19 09:30 Plt Count 247 K/MM3 (134-434) 12/11/19 09:30 MPV 9.3 fl (7.5-11.1) 12/11/19 09:30 Sodium 137 mmol/L (136-145) 12/11/19 09:30 Potassium 4.0 mmol/L (3.5-5.1) 12/11/19 09:30 Chloride 102 mmol/L (98-107) 12/11/19 09:30 Carbon Dioxide 30 mmol/L (21-32) 12/11/19 09:30 Anion Gap 5 MMOL/L (8-16) L 12/11/19 09:30 BUN 22.2 mg/dL (7-18) H 12/11/19 09:30 Creatinine 0.9 mg/dL (0.55-1.3) 12/11/19 09:30 Est GFR (CKD-EPI)AfAm 126.90 12/11/19 09:30 Est GFR (CKD-EPI)NonAf 109.49 12/11/19 09:30 Random Glucose 92 mg/dL (74-106) 12/11/19 09:30 Calcium 8.7 mg/dL (8.5-10.1) 12/11/19 09:30 Total Bilirubin 0.4 mg/dL (0.2-1) 12/11/19 09:30 AST 44 U/L (15-37) H 12/11/19 09:30 ALT 67 U/L (13-61) H 12/11/19 09:30 Alkaline Phosphatase 93 U/L (45-117) 12/11/19 09:30 Total Protein 7.6 g/dl (6.4-8.2) 12/11/19 09:30 Albumin 3.4 g/dl (3.4-5.0) 12/11/19 09:30 RPR Titer Nonreactive (NONREACTIVE) 12/11/19 09:30 - Medication Discharge Medications: Ambulatory Orders Quetiapine Fumarate [Seroquel -] 100 mg PO HS 10/11/19 - Diagnosis (1) Opioid dependence with withdrawal Status: Acute (2) IVDU (intravenous drug user) Status: Acute (3) Sedative, hypnotic or anxiolytic dependence with withdrawal, uncomplicated Status: Acute (4) Hepatitis C Status: Chronic Qualifiers: Viral hepatitis chronicity: chronic Hepatic coma status: without hepatic coma Qualified Code(s): B18.2 - Chronic viral hepatitis C (5) Nicotine dependence Status: Chronic Qualifiers: Nicotine product type: cigarettes Substance use status: in withdrawal Qualified Code(s): F17.213 - Nicotine dependence, cigarettes, with withdrawal (6) Asthma Status: Acute - AMA Did Patient Leave Against Medical Advice: Yes
[2019-12-14] MEDS ORDERED: METHADONE (DETOX) 10 MG, METHADONE (DETOX) 5 MG PO ONE (10:00)
[2019-12-15] MEDS ORDERED: METHADONE HCL 10 MG TABLET (FOR DETOX USE ONLY) PO ONE (10:00)
[2019-12-16] MEDS ORDERED: METHADONE HCL 5 MG TABLET (FOR DETOX USE ONLY) PO ONE (06:00)
== END 2019-12-13 13:21 | disposition left against medical advice (07) | DRG 770 ==
LOC: YASAS 08:16 → Y6N 09:30
PROVIDERS: ADMIT Allergy & Immunology; ATTEND Allergy & Immunology
PROC: HZ2ZZZZ Detoxification Services for Substance Abuse Treatment (ICD-10-PCS; principal; 2019-12-11)
DX: F11.23 Opioid dependence with withdrawal (principal); F13.230 Sedative, hypnotic or anxiolytic dependence with withdrawal, uncomplicated; F17.210 Nicotine dependence, cigarettes, uncomplicated; F19.282 Other psychoactive substance dependence with psychoactive substance-induced sleep disorder; F19.24 Other psychoactive substance dependence with psychoactive substance-induced mood disorder; F41.9 Anxiety disorder, unspecified; F32.9 Major depressive disorder, single episode, unspecified; J45.909 Unspecified asthma, uncomplicated; G47.00 Insomnia, unspecified; B18.2 Chronic viral hepatitis C; Z91.410 Personal history of adult physical and sexual abuse; Z56.0 Unemployment, unspecified; Z91.5 Personal history of self-harm
CPT/HCPCS: 36415; 80053; 85027; 86593; J0735

== ENCOUNTER 2020-07-12 08:10 | Inpatient (IN) | payer OTHER ==
--- NOTE | 2020-07-12 08:37 | BHS.RME ---
Substance Use & Tx History - Substance Use History Heroin Substance amount: 10 bags heroin Frequency of use: Daily Substance route: Injection (ex: intravenous or skin popping) Date of Last Use: 07/11/20 Xanax Substance amount: 4 mgs Frequency of use: Less than 3 times per week Substance route: Oral Date of Last Use: 07/11/20 - Last Treatment Date of last treatment: [facility] 12/11/19 to 12/13/19 Where was last treatment: Detox (12/11/19 to 12/13/19) Physical/Psych/Mental Status - Behavior General Behavior: Increased activity (restlessness, agitation) Eye Contact: Normal - Cooperativeness Cooperativeness: Cooperative - Thinking Thought Processes: Logical Thought content: Future oriented - Physical Health Problems Is patient presently having any pain?: No Does patient presently have any injuries (include location): No Does patient currently have a fever: No COWS - Scale Resting Pulse: 1= [place] 81-100 Sweatin= Chills/Flushing Restless Observation: 1= Difficult to Sit Still Pupil Size: 1= Pupils >than Normal Bone or Joint Aches: 2= Severe Diffuse Aches Runny Nose/ Eye Tearin= Runny Nose/Eyes GI Upset > 30mins: 2= Nausea/Diarrhea Tremor Observation: 2= Slight Tremor Visible Yawning Observation: 1= 1-2x During Session Anxiety or Irritability: 2=Irritable/Anxious Goose Flesh Skin: 0=Smooth Skin COWS Score: 15 CIWA Nausea/Vomitin Muscle Tremors: 3 Anxiety: 3 Agitation: 3 Paroxysmal Sweats: 1-Minimal Palms Moist Orientation: 0-Oriented Tacttile Disturbances: 1-Very Mild Itch/Numbness Auditory Disturbances: 0-None Visual Disturbances: 0-None Headache: 2-Mild CIWA-Ar Total Score: 15
--- NOTE | 2020-07-12 08:49 | HP ---
COWS - Scale Resting Pulse: 1= [place] 81-100 Sweatin= Chills/Flushing Restless Observation: 1= Difficult to Sit Still Pupil Size: 1= Pupils >than Normal Bone or Joint Aches: 2= Severe Diffuse Aches Runny Nose/ Eye Tearin= Runny Nose/Eyes GI Upset > 30mins: 2= Nausea/Diarrhea Tremor Observation: 2= Slight Tremor Visible Yawning Observation: 1= 1-2x During Session Anxiety or Irritability: 2=Irritable/Anxious Goose Flesh Skin: 0=Smooth Skin COWS Score: 15 CIWA Score Nausea/Vomitin Muscle Tremors: 3 Anxiety: 3 Agitation: 3 Paroxysmal Sweats: 1-Minimal Palms Moist Orientation: 0-Oriented Tacttile Disturbances: 1-Very Mild Itch/Numbness Auditory Disturbances: 0-None Visual Disturbances: 0-None Headache: 2-Mild CIWA-Ar Total Score: 15 - Admission Criteria OASAS Guidelines: Admission for Medically Managed Detox: Requires at least one of the followin. CIWA greater than 12 2. Seizures within the past 24 hours 3. Delirium tremens within the past 24 hours 4. Hallucinations within the past 24 hours 5. Acute intervention needed for co occurring medical disorder 6. Acute intervention needed for co occurring psychiatric disorder 7. Severe withdrawal that cannot be handled at a lower level of care (continued vomiting, continued diarrhea, abnormal vital signs) requiring intravenous medication and/or fluids 8. Admitting History and Physical - Admission Chief Complaint: i need help to stop using heroin and xanax History of Present Illness: this 35 years old male with heroin and xanax dependence seeking detox History Source: Patient, Caregiver Limitations to Obtaining History: No Limitations - Past Medical History WASTE MANAGEMENT ENGINEER: Yes: Syncope Hepatobiliary: Yes: Hepatitis C Psych: Yes: Anxiety, Depression, Other (insomnia) - Past Surgical History Past Surgical History: Yes: None - Smoking History Smoking history: Current every day smoker Have you smoked in the past 12 months: Yes Aproximately how many cigarettes per day: 20 - Alcohol/Substance Use Hx Alcohol Use: No History of Substance Use: reports: Heroin, Tranquilizers - Social History Usual Living Arrangement: Yes: Alone Do you think of yourself as: Straight/Heterosexual ADL: Support Services Occupation: unemplyoed History of Recent Travel: No Other Social History: unemployed,no legal issue Admission ROS [facility] Chief Complaint: i need help to stop using heroin and xanax Allergies/Adverse Reactions: Allergies Allergy/AdvReac Type Severity Reaction Status Date / Time No Known Allergies Allergy Verified 07/12/20 09:25 History of Present Illness: this 35 years old male with heroin and xanax dependence seeking detox,withdrawal symptom, last detox 12/11/19 to 12/13/19 not completed denied seizure syncope history of hepatitis c not treated anxiety,depression,insomnia nicotine dependence unemployed,no legal issue longest sobriety 3 months plan for rehab after detox history of asthma Exam Limitations: No Limitations - Ebola screening Have you traveled outside of the country in the last 21 days: No Have you had contact with anyone from an Ebola affected area: No Have you been sick,other than usual withdrawal symptoms: No Do you have a fever: No - Review of Systems Constitutional: Chills, Loss of Appetite, Night Sweats, Changes in sleep, Weakness EENT: reports: Nose Congestion Respiratory: reports: No Symptoms reported Cardiac: reports: No Symptoms Reported GI: reports: Diarrhea, Nausea, Abdominal cramping : reports: No Symptoms Reported Musculoskeletal: reports: Back Pain, Joint Pain, Muscle Pain Integumentary: reports: Dryness Neuro: reports: Headache, Tremors Endocrine: reports: No Symptoms Reported Hematology: reports: No Symptoms Reported Psychiatric: reports: Judgement Intact, Mood/Affect Appropiate, Orientated x3, Anxious, Depressed Other Systems: Reviewed and Negative Patient History - Patient Medical History Hx Anemia: No Hx Asthma: Yes Hx Chronic Obstructive Pulmonary Disease (COPD): No Hx Cancer: No Hx Cardiac Disorders: No Hx Congestive Heart Failure: No Hx Hypertension: No Hx Hypercholesterolemia: No Hx Pacemaker: No HX Cerebrovascular Accident: No Hx Seizures: No Hx Dementia: No Hx Diabetes: No Hx Gastrointestinal Disorders: No Hx Liver Disease: Yes (Hep C , untreated) Hx Genitourinary Disorders: No Hx Sexually Transmitted Disorders: No Hx Renal Disease (ESRD): No Hx Thyroid Disease: No Hx Human Immunodeficiency Virus (HIV): No (Negative tested about a year ago in 2019) Hx Hepatitis C: Yes (not treated ) Hx Depression: Yes Hx Suicide Attempt: No Hx Bipolar Disorder: No Hx Schizophrenia: No Other Medical History: anxiety,insomnia,no suicidal,no homicidal - Patient Surgical History Past Surgical History: No Hx Neurologic Surgery: No Hx Cataract Extraction: No Hx Cardiac Surgery: No Hx Lung Surgery: No Hx Breast Surgery: No Hx Breast Biopsy: No Hx Abdominal Surgery: No Hx Appendectomy: No Hx Cholecystectomy: No Hx Genitourinary Surgery: No Hx Section: No Hx Orthopedic Surgery: No Anesthesia Reaction: No - PPD History Previous Implant?: Yes Implanted On Prior [facility] Admission?: Yes Date: 12/13/19 Results: 0 mm PPD to be Administered?: No - Smoking Cessation Smoking history: Current every day smoker Have you smoked in the past 12 months: Yes Aproximately how many cigarettes per day: 20 Cigars Per Day: 0 Hx Chewing Tobacco Use: No Initiated information on smoking cessation: Yes 'Breaking Loose' booklet given: 07/12/20 - Substance & Tx. History Hx Alcohol Use: No Hx Substance Use: Yes Substance Use Type: Heroin, Tranquilizers Hx Substance Use Treatment: Yes ([facility] 12/11/19 to 12/13/19) Admission Physical Exam BHS - Vital Signs Vital Signs: bp 105/67 p 97 r18 t97.6 regina 0.00 pulse ox 97% - Physical General Appearance: Yes: Moderate Distress, Tremorous, Irritable, Sweating, Anxious HEENTM: Yes: Normal ENT Inspection, Normocephalic, ESHA, Pharynx Normal Respiratory: Yes: Within Normal Limits, Lungs Clear, Normal Breath Sounds Neck: Yes: Within Normal Limits, Supple, Trachea in good position Breast: Yes: Within Normal Limits Cardiology: Yes: Within Normal Limits, Regular Rhythm, Regular Rate, S1, S2 Abdominal: Yes: Within Normal Limits, Normal Bowel Sounds, Non Tender, Soft Genitourinary: Yes: Within Normal Limits Back: Yes: Muscle Spasm Musculoskeletal: Yes: Back pain, Joint Stiffness, Muscle Pain Extremities: Yes: Tremors, Inflammation Neurological: Yes: Alert, Motor Strength 5/5 Integumentary: Yes: Dry, Track Blanca Lymphatic: Yes: Within Normal Limits - Diagnostic (1) Opioid dependence with withdrawal Current Visit: Yes Status: Acute (2) Sedative, hypnotic or anxiolytic dependence with withdrawal, uncomplicated Current Visit: Yes Status: Acute (3) Bronchial asthma Current Visit: No Status: Chronic (4) Hepatitis C Current Visit: No Status: Chronic (5) Nicotine dependence Current Visit: No Status: Chronic Qualifiers: Nicotine product type: cigarettes Substance use status: in withdrawal Qualified Code(s): F17.213 - Nicotine dependence, cigarettes, with withdrawal (6) Insomnia secondary to depression with anxiety Current Visit: Yes Status: Acute (7) IVDU (intravenous drug user) Current Visit: Yes Status: Acute Cleared for Admission [facility] - Detox or Rehab [facility] Level of Care: Medically Managed Detox Regimen/Protocol: Methadone/Valium Breathalyzer - Breathalyzer Breathalyzer: 0 POC Urine test - Test device test lot number: not applicable Urine Drug Screen - Test Device Lot number: [id number] Expiration date: 05/02/21 - Control Is test valid?: Yes - Results Drug screen NEGATIVE: No Urine drug screen results: MADI-Cocaine, FEN-Fentanyl, MOP-Opiates, BZO- Benzodiazepines Inpatient Rehab Admission - Rehab Decision to Admit Inpatient rehab admission?: No
[2020-07-12] MEDS ORDERED: cloNIDine HCL 0.1 MG TABLET PO PRN (09:07)
[2020-07-12] MEDS ORDERED: MENTHOL/PHENOL 1 EACH UD MM PRN (09:07)
[2020-07-12] MEDS ORDERED: MAGNESIUM HYDROX 2400MG/30ML ORAL SUSPENSION 30 ML CUP PO PRN (09:07)
[2020-07-12] MEDS ORDERED: ONDANSETRON *ODT* 4 MG TABLET SL PRN (09:07)
[2020-07-12] MEDS ORDERED: ACETAMINOPHEN 325 MG TABLET (FP) PO PRN ×2 (09:07)
[2020-07-12] MEDS ORDERED: diazePAM 5 MG TABLET PO PRN (09:07)
[2020-07-12] MEDS ORDERED: BISMUTH SUBSALICYLATE 524 MG/30 ML UD PO PRN (09:07)
[2020-07-12] MEDS ORDERED: NICOTINE POLACRILEX 2 MG GUM BUC PRN (09:07)
[2020-07-12] MEDS ORDERED: MAG HYDROX/AL HYDROX/SIMETH 30 ML UNIT-DOSE CUP PO PRN (09:07)
[2020-07-12] MEDS ORDERED: IBUPROFEN 400 MG TABLET (FP) PO PRN (09:07)
[2020-07-12] MEDS ORDERED: MAGNESIUM CITRATE 300 ML BOTTLE PO PRN (09:07)
[2020-07-12 09:25] VITALS: BMI 30.9
[2020-07-12] MEDS ORDERED: METHADONE HCL 10 MG TABLET (FOR DETOX USE ONLY) PO ONE (10:00)
--- NOTE | 2020-07-12 10:45 | CONSULT ---
[facility] Psychiatric Consult - Data Date of interview: 07/12/20 Admission source: [facility] Identifying data: Patient is a 35 year old male, father of two, unemployed, homeless, and is not currently receiving financial assistance. This is one of multiple admissions for patient. Patient admitted to for opiate dependence. Substance Abuse History: History of opiate dependence. Medical History: Significant for bronchial asthma, hepatitis C. Psychiatric History: Mr. Golden denies history of psychiatric hospitalizations. He reports one psychiatric CPEP admission at [facility] while in his early 20's after he became intoxicated and had a suicide attempt via overdose. Mr. Golden states that he was diagnosed with depression and anxiety disorder and then discharged after several days of observation. Patient denies history of outpatient psychiatric treatment. States that his main psychiatric contact occur at detox/ rehab facilites. Mr. Golden has received seroquel 100mg with favorable effects during prior admissions. At present patient reports feeling anxious and is experiencing difficulty sleeping. Physical/Sexual Abuse/Trauma History: denies. Mental Status Exam - Mental Status Exam Alert and Oriented to: Time, Place, Person Cognitive Function: Good Patient Appearance: Well Groomed Mood: Withdrawn Affect: Mood Congruent Patient Behavior: Appropriate, Cooperative Speech Pattern: Appropriate Voice Loudness: Normal Thought Process: Intact, Goal Oriented Thought Disorder: Not Present Hallucinations: Denies Suicidal Ideation: Denies Homicidal Ideation: Denies Insight/Judgement: Poor Sleep: Poorly Appetite: Fair Muscle strength/Tone: Normal Gait/Station: Normal Psychiatric Findings - Problem List ([place] 1, 2,3) (1) Opioid dependence with withdrawal Current Visit: Yes Status: Acute (2) Sedative, hypnotic or anxiolytic dependence with withdrawal, uncomplicated Current Visit: Yes Status: Acute (3) Substance-induced sleep disorder Current Visit: Yes Status: Acute (4) Substance induced mood disorder Current Visit: Yes Status: Acute - Initial Treatment Plan Initial Treatment Plan: Psychoeducation provided. Detoxification in progress. Will order Seroquel 100mg HS. Benefits and side effects discussed. Verbal consent given.
[2020-07-12] MEDS: hydrOXYzine PAMOATE 25 MG CAPSULE (FP) PO SCH ×4 (11:09→22:47)
[2020-07-12] MEDS: NICOTINE 21 MG/24 HOURS TOPICAL PATCH TD SCH (11:09)
[2020-07-12] MEDS: PRENATAL VITAMINS W/ FOLIC ACID TABLET (FP) PO SCH (11:09)
[2020-07-12] MEDS: diazePAM 5 MG TABLET PO SCH ×3 (11:11→22:46)
[2020-07-12] MEDS: QUEtiapine FUMARATE 100 MG TABLET (FP) PO SCH (22:47)
[2020-07-12] MEDS: THIAMINE HCL 100 MG TABLET (FP) PO SCH (22:47)
[2020-07-12] MEDS: MELATONIN 5 MG TABLETS PO SCH (22:49)
[2020-07-13] MEDS: diazePAM 5 MG TABLET PO SCH ×4 (05:57→22:35)
[2020-07-13] MEDS: hydrOXYzine PAMOATE 25 MG CAPSULE (FP) PO SCH ×5 (05:58→22:36)
[2020-07-13] MEDS ORDERED: METHADONE HCL 10 MG TABLET (FOR DETOX USE ONLY) ONE (09:46)
[2020-07-13] MEDS ORDERED: METHADONE HCL 5 MG TABLET (FOR DETOX USE ONLY) ONE (09:47)
[2020-07-13] MEDS ORDERED: METHADONE (DETOX) 20 MG, METHADONE (DETOX) 5 MG PO ONE (10:00)
[2020-07-13 10:17] LABS: HEMATOCRIT 38.6 % (35.4-49); HEMOGLOBIN 12.3 GM/dL (11.7-16.9); MCH 25.5 pg (25.7-33.7); MCHC 31.9 g/dl (32.0-35.9); MEAN CELL VOLUME 79.8 fl (80-96); MEAN PLT VOLUME 10.5 fl (7.5-11.1); PLATELET COUNT 220 K/MM3 (134-434); RBC 4.84 M/mm3 (4.00-5.60); RDW 14.2 % (11.9-15.9); WHITE BLOOD COUNT 8.1 K/mm3 (4.0-10.0)
[2020-07-13 10:21] LABS: ALBUMIN 3.5 g/dl (3.4-5.0); BILIRUBIN,TOTAL 0.4 mg/dL (0.2-1); BLOOD UREA NITROGEN 19.3 mg/dL (7-18); CALCIUM 8.9 mg/dL (8.5-10.1); CREATININE 0.7 mg/dL (0.55-1.3); POTASSIUM 4.3 mmol/L (3.5-5.1); TOT PROT 7.8 g/dl (6.4-8.2)
[2020-07-13 10:31] LABS: URINE APPEARANCE Clear; URINE BILIRUBIN Negative (NEGATIVE); URINE COLOR Yellow; URINE GLUCOSE (UA) Negative (NEGATIVE); URINE KETONE Negative (NEGATIVE); URINE LEUK ESTERASE Negative (NEGATIVE); URINE NITRITE Negative (NEGATIVE); URINE PROTEIN Negative (NEGATIVE); URINE UROBILINOGEN 0.2 mg/dL (0.2-1.0)
[2020-07-13] MEDS: METHOCARBAMOL 500 MG TABLET PO PRN (10:40)
[2020-07-13] MEDS: PRENATAL VITAMINS W/ FOLIC ACID TABLET (FP) PO SCH (10:40)
[2020-07-13] MEDS: NICOTINE 21 MG/24 HOURS TOPICAL PATCH TD SCH (10:41)
--- NOTE | 2020-07-13 15:08 | PN ---
S CIWA - CIWA Score Nausea/Vomitin-No Nausea/No Vomiting Muscle Tremors: 2 Anxiety: 2 Agitation: 2 Paroxysmal Sweats: No Perspiration Orientation: 1-Uncertain about Date (day of week) Tacttile Disturbances: 0-None Auditory Disturbances: 0-None Visual Disturbances: 1-Very Mild Sensitivity Headache: 2-Mild CIWA-Ar Total Score: 10 BHS COWS - Scale Resting Pulse: 0= [place] 80 or Below Sweatin= No chills or Flushing Restless Observation: 0= Sits Still Pupil Size: 1= Pupils >than Normal Bone or Joint Aches: 1= Mild Discomfort Runny Nose/ Eye Tearin= None GI Upset > 30mins: 2= Nausea/Diarrhea Tremor Observation of Outstretched Hands: 2= Slight Tremor Visible Yawning Observation: 0= None Anxiety or Irritability: 1=Feels Anxious/Irritable Goose Flesh Skin: 3=Piloerection COWS Score: 10 S Progress Note (SOAP) Subjective: 35 years old male was admitted on 07/12/20 for opiate and benzo withdrawal sx management treating with valium and methadone detox regiment feels tired ate small amount of breakfast and lunch resting in bed limited conversation with staff Objective: 07/13/20 15:07 Vital Signs - 24 hr 07/12/20 07/12/20 07/13/20 16:57 20:50 07:09 Temperature 97.7 F 97.7 F 97.1 F L Pulse Rate 70 63 54 L Respiratory 17 18 16 Rate Blood Pressure 103/68 145/73 103/67 O2 Sat by Pulse 97 98 Oximetry (%) 07/13/20 07/13/20 08:23 12:29 Temperature 97.3 F L 97.8 F Pulse Rate 65 60 Respiratory 18 18 Rate Blood Pressure 113/76 114/75 O2 Sat by Pulse 97 Oximetry (%) Laboratory Tests 07/12/20 07/13/20 07/13/20 09:45 05:55 05:55 WBC 8.1 RBC 4.84 Hgb 12.3 Hct 38.6 MCV 79.8 L MCH 25.5 L MCHC 31.9 L RDW 14.2 Plt Count 220 MPV 10.5 D Sodium 137 Potassium 4.3 Chloride 101 Carbon Dioxide 31 Anion Gap 5 L BUN 19.3 H Creatinine 0.7 Est GFR (CKD-EPI)AfAm 139.73 Est GFR (CKD-EPI)NonAf 120.56 Random Glucose 85 Calcium 8.9 Total Bilirubin 0.4 AST 27 ALT 29 Alkaline Phosphatase 77 Total Protein 7.8 Albumin 3.5 Urine Color Urine Appearance Urine pH Ur Specific [place] Urine Protein Urine Glucose (UA) Urine Ketones Urine Blood Urine Nitrite Urine Bilirubin Urine Urobilinogen Ur Leukocyte Esterase Syphilis Serology Non-reactive 07/13/20 08:20 WBC RBC Hgb Hct MCV MCH MCHC RDW Plt Count MPV Sodium Potassium Chloride Carbon Dioxide Anion Gap BUN Creatinine Est GFR (CKD-EPI)AfAm Est GFR (CKD-EPI)NonAf Random Glucose Calcium Total Bilirubin AST ALT Alkaline Phosphatase Total Protein Albumin Urine Color Yellow Urine Appearance Clear Urine pH 6.0 Ur Specific [place] 1.015 Urine Protein Negative Urine Glucose (UA) Negative Urine Ketones Negative Urine Blood Negative Urine Nitrite Negative Urine Bilirubin Negative Urine Urobilinogen 0.2 Ur Leukocyte Esterase Negative Syphilis Serology 07/13/20 15:07 covid pending Assessment: 07/13/20 15:07 benzo and opiate withdrawal Plan: valium and methadone regiment
[2020-07-13] MEDS: MELATONIN 5 MG TABLETS PO SCH (22:35)
[2020-07-13] MEDS: THIAMINE HCL 100 MG TABLET (FP) PO SCH (22:35)
[2020-07-13] MEDS: QUEtiapine FUMARATE 100 MG TABLET (FP) PO SCH (22:35)
[2020-07-14] MEDS: hydrOXYzine PAMOATE 25 MG CAPSULE (FP) PO SCH ×4 (05:36→22:29)
[2020-07-14] MEDS: diazePAM 5 MG TABLET PO SCH ×3 (05:36→22:29)
[2020-07-14] MEDS ORDERED: METHADONE HCL 10 MG TABLET (FOR DETOX USE ONLY) PO ONE (10:00)
[2020-07-14] MEDS: METHOCARBAMOL 500 MG TABLET PO PRN (10:03)
[2020-07-14] MEDS: NICOTINE 21 MG/24 HOURS TOPICAL PATCH TD SCH (10:04)
[2020-07-14] MEDS: PRENATAL VITAMINS W/ FOLIC ACID TABLET (FP) PO SCH (10:04)
--- NOTE | 2020-07-14 12:41 | PN ---
[facility] CIWA - CIWA Score Nausea/Vomitin-No Nausea/No Vomiting Muscle Tremors: 3 Anxiety: 2 Agitation: 0-Normal Activity Paroxysmal Sweats: No Perspiration Orientation: 0-Oriented Tacttile Disturbances: 0-None Auditory Disturbances: 0-None Visual Disturbances: 1-Very Mild Sensitivity Headache: 2-Mild CIWA-Ar Total Score: 8 S COWS - Scale Resting Pulse: 1= [place] 81-100 Sweatin= No chills or Flushing Restless Observation: 0= Sits Still Pupil Size: 1= Pupils >than Normal Bone or Joint Aches: 1= Mild Discomfort Runny Nose/ Eye Tearin= None GI Upset > 30mins: 1= Stomach Cramp Tremor Observation of Outstretched Hands: 2= Slight Tremor Visible Yawning Observation: 0= None Anxiety or Irritability: 2=Irritable/Anxious Goose Flesh Skin: 0=Smooth Skin COWS Score: 8 S Progress Note (SOAP) Subjective: 35 years old male was admitted on 07/12/20 for leonor and opiate withdrawal sx ma ivania treating with valium and methadone detox regiment reports having diarrhea rejects imodium "I want methadone" encourage mr juan to consider medication assisted treatment program for opiate abuse 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 Objective: 07/14/20 12:45 Vital Signs - 24 hr 07/13/20 07/13/20 07/14/20 16:54 20:52 06:54 Temperature 97.5 F L 97.8 F 97.7 F Pulse Rate 52 L 95 H 70 Respiratory 16 19 18 Rate Blood Pressure 102/66 105/71 100/61 O2 Sat by Pulse 97 96 Oximetry (%) 07/14/20 08:35 Temperature 96.8 F L Pulse Rate 81 Respiratory 18 Rate Blood Pressure 107/64 O2 Sat by Pulse 96 Oximetry (%) Laboratory Tests 07/12/20 07/12/20 07/13/20 09:45 09:45 05:55 WBC RBC Hgb Hct MCV MCH MCHC RDW Plt Count MPV Sodium 137 Potassium 4.3 Chloride 101 Carbon Dioxide 31 Anion Gap 5 L BUN 19.3 H Creatinine 0.7 Est GFR (CKD-EPI)AfAm 139.73 Est GFR (CKD-EPI)NonAf 120.56 Random Glucose 85 Calcium 8.9 Total Bilirubin 0.4 AST 27 ALT 29 Alkaline Phosphatase 77 Total Protein 7.8 Albumin 3.5 Urine Color Urine Appearance Urine pH Ur Specific [place] Urine Protein Urine Glucose (UA) Urine Ketones Urine Blood Urine Nitrite Urine Bilirubin Urine Urobilinogen Ur Leukocyte Esterase Syphilis Serology Non-reactive COVID-19 ([facility]) Not detected 07/13/20 07/13/20 05:55 08:20 WBC 8.1 RBC 4.84 Hgb 12.3 Hct 38.6 MCV 79.8 L MCH 25.5 L MCHC 31.9 L RDW 14.2 Plt Count 220 MPV 10.5 D Sodium Potassium Chloride Carbon Dioxide Anion Gap BUN Creatinine Est GFR (CKD-EPI)AfAm Est GFR (CKD-EPI)NonAf Random Glucose Calcium Total Bilirubin AST ALT Alkaline Phosphatase Total Protein Albumin Urine Color Yellow Urine Appearance Clear Urine pH 6.0 Ur Specific [place] 1.015 Urine Protein Negative Urine Glucose (UA) Negative Urine Ketones Negative Urine Blood Negative Urine Nitrite Negative Urine Bilirubin Negative Urine Urobilinogen 0.2 Ur Leukocyte Esterase Negative Syphilis Serology COVID-19 ([facility]) lab noted Assessment: 07/14/20 12:46 benzo and opiate withdrawal Plan: valium and methadone regiments
[2020-07-14] MEDS: MELATONIN 5 MG TABLETS PO SCH (22:29)
[2020-07-14] MEDS: QUEtiapine FUMARATE 100 MG TABLET (FP) PO SCH (22:29)
[2020-07-14] MEDS: THIAMINE HCL 100 MG TABLET (FP) PO SCH (22:30)
[2020-07-15] MEDS ORDERED: diazePAM 5 MG TABLET PO SCH (06:00)
[2020-07-15] MEDS: hydrOXYzine PAMOATE 25 MG CAPSULE (FP) PO SCH ×2 (07:21→10:15)
[2020-07-15] MEDS ORDERED: METHADONE HCL 5 MG TABLET (FOR DETOX USE ONLY) ONE (09:08)
[2020-07-15] MEDS ORDERED: METHADONE HCL 10 MG TABLET (FOR DETOX USE ONLY) ONE (09:08)
[2020-07-15 09:43] VITALS: BP 93/60; PULSE 66; TEMP 97
[2020-07-15] MEDS ORDERED: METHADONE (DETOX) 10 MG, METHADONE (DETOX) 5 MG PO ONE (10:00)
[2020-07-15] MEDS: PRENATAL VITAMINS W/ FOLIC ACID TABLET (FP) PO SCH (10:15)
[2020-07-15] MEDS: NICOTINE 21 MG/24 HOURS TOPICAL PATCH TD SCH (10:16)
--- NOTE | 2020-07-15 13:51 | DS ---
[facility] Detox Discharge Summary Admission Date: 07/12/20 Discharge Date: 07/15/20 - History Present History: Opioid Dependence, Sedative Dependence Additional Comments: 35 years old male was admitted on 07/12/20 for benzo and opiate with drawal sx management treating with valium and methadone detox regiments seen by psychiatrist shila oropeza mr juan insists to leave the detox due to family emergency mr juan is alert oriented x 3 speech clearly coherently ambulating with steady gait Vital Signs - 24 hr 07/14/20 07/14/20 07/15/20 16:46 20:38 09:13 Temperature 97.3 F L 97.8 F 97 F L Pulse Rate 49 L 75 66 Respiratory 18 18 18 Rate Blood Pressure 95/61 112/78 93/60 O2 Sat by Pulse 100 Oximetry (%) Laboratory Tests 07/12/20 07/12/20 07/13/20 09:45 09:45 05:55 WBC RBC Hgb Hct MCV MCH MCHC RDW Plt Count MPV Sodium 137 Potassium 4.3 Chloride 101 Carbon Dioxide 31 Anion Gap 5 L BUN 19.3 H Creatinine 0.7 Est GFR (CKD-EPI)AfAm 139.73 Est GFR (CKD-EPI)NonAf 120.56 Random Glucose 85 Calcium 8.9 Total Bilirubin 0.4 AST 27 ALT 29 Alkaline Phosphatase 77 Total Protein 7.8 Albumin 3.5 Urine Color Urine Appearance Urine pH Ur Specific [place] Urine Protein Urine Glucose (UA) Urine Ketones Urine Blood Urine Nitrite Urine Bilirubin Urine Urobilinogen Ur Leukocyte Esterase Syphilis Serology Non-reactive COVID-19 ([facility]) Not detected 07/13/20 07/13/20 05:55 08:20 WBC 8.1 RBC 4.84 Hgb 12.3 Hct 38.6 MCV 79.8 L MCH 25.5 L MCHC 31.9 L RDW 14.2 Plt Count 220 MPV 10.5 D Sodium Potassium Chloride Carbon Dioxide Anion Gap BUN Creatinine Est GFR (CKD-EPI)AfAm Est GFR (CKD-EPI)NonAf Random Glucose Calcium Total Bilirubin AST ALT Alkaline Phosphatase Total Protein Albumin Urine Color Yellow Urine Appearance Clear Urine pH 6.0 Ur Specific [place] 1.015 Urine Protein Negative Urine Glucose (UA) Negative Urine Ketones Negative Urine Blood Negative Urine Nitrite Negative Urine Bilirubin Negative Urine Urobilinogen 0.2 Ur Leukocyte Esterase Negative Syphilis Serology COVID-19 ([facility]) lab noted General Appearance: Yes: no Distress, mild Tremorous, not Irritable, no Sweating, mild Anxious HEENTM: Yes: Normal ENT Inspection, Normocephalic, ESHA, Pharynx Normal Respiratory: Yes: Within Normal Limits, Lungs Clear, Normal Breath Sounds Neck: Yes: Within Normal Limits, Supple, Trachea in good position Breast: Yes: Within Normal Limits Cardiology: Yes: Within Normal Limits, Regular Rhythm, Regular Rate, S1, S2 Abdominal: Yes: Within Normal Limits, Normal Bowel Sounds, Non Tender, Soft Genitourinary: Yes: Within Normal Limits Back: Yes: Muscle Spasm Musculoskeletal: Yes: Back pain, Joint Stiffness, Muscle Pain Extremities: Yes: mild Tremors, no Inflammation Neurological: Yes: Alert, Motor Strength 5/5 Integumentary: Yes: Dry, Track Blanca Lymphatic: Yes: Within Normal Limits Pertinent Past History: time for discharge 46 minutes treatment team met with mr juan to discuss the benefit of valium and methadone regiments completion mr juan prefers to leave the detox today instead of estimated discharge date of 07/17/20 due to family emergency - Physical Exam Results Vital Signs: Vital Signs Temperature 97 F L 07/15/20 09:13 Pulse Rate 66 07/15/20 09:13 Respiratory Rate 18 07/15/20 09:13 Blood Pressure 93/60 07/15/20 09:13 O2 Sat by Pulse Oximetry (%) 100 07/14/20 20:38 Pertinent Admission Physical Exam Findings: benzo and opiate withdrawal Laboratory Tests 07/12/20 07/12/20 07/13/20 09:45 09:45 05:55 WBC RBC Hgb Hct MCV MCH MCHC RDW Plt Count MPV Sodium 137 Potassium 4.3 Chloride 101 Carbon Dioxide 31 Anion Gap 5 L BUN 19.3 H Creatinine 0.7 Est GFR (CKD-EPI)AfAm 139.73 Est GFR (CKD-EPI)NonAf 120.56 Random Glucose 85 Calcium 8.9 Total Bilirubin 0.4 AST 27 ALT 29 Alkaline Phosphatase 77 Total Protein 7.8 Albumin 3.5 Urine Color Urine Appearance Urine pH Ur Specific [place] Urine Protein Urine Glucose (UA) Urine Ketones Urine Blood Urine Nitrite Urine Bilirubin Urine Urobilinogen Ur Leukocyte Esterase Syphilis Serology Non-reactive COVID-19 ([facility]) Not detected 07/13/20 07/13/20 05:55 08:20 WBC 8.1 RBC 4.84 Hgb 12.3 Hct 38.6 MCV 79.8 L MCH 25.5 L MCHC 31.9 L RDW 14.2 Plt Count 220 MPV 10.5 D Sodium Potassium Chloride Carbon Dioxide Anion Gap BUN Creatinine Est GFR (CKD-EPI)AfAm Est GFR (CKD-EPI)NonAf Random Glucose Calcium Total Bilirubin AST ALT Alkaline Phosphatase Total Protein Albumin Urine Color Yellow Urine Appearance Clear Urine pH 6.0 Ur Specific [place] 1.015 Urine Protein Negative Urine Glucose (UA) Negative Urine Ketones Negative Urine Blood Negative Urine Nitrite Negative Urine Bilirubin Negative Urine Urobilinogen 0.2 Ur Leukocyte Esterase Negative Syphilis Serology COVID-19 ([facility]) lab noted - Treatment Hospital Course: Detox Protocol Followed, Detoxed Safely, Responded well, Discharged Condition Good, Rehab Referral Accepted Patient has Accepted a Rehab Referral to: [facility] - Medication Discharge Medications: Ambulatory Orders Naloxone HCl [Narcan] 4 mg NS ASDIR PRN #1 spray 07/14/20 - Diagnosis (1) Opioid dependence with withdrawal Current Visit: Yes Status: Acute (2) Sedative, hypnotic or anxiolytic dependence with withdrawal, uncomplicated Current Visit: Yes Status: Acute (3) Substance induced mood disorder Current Visit: Yes Status: Suspected (4) Asthma Current Visit: Yes Status: Chronic Qualifiers: Asthma severity: mild Asthma persistence: intermittent Asthma complication type: with status asthmaticus Qualified Code(s): J45.22 - Mild intermittent asthma with status asthmaticus (5) Hepatitis C Current Visit: Yes Status: Chronic Qualifiers: Viral hepatitis chronicity: chronic Hepatic coma status: without hepatic coma Qualified Code(s): B18.2 - Chronic viral hepatitis C (6) Hepatitis C Current Visit: Yes Status: Chronic Qualifiers: Viral hepatitis chronicity: carrier Qualified Code(s): B18.2 - Chronic viral hepatitis C (7) Nicotine dependence Current Visit: Yes Status: Acute Qualifiers: Nicotine product type: cigarettes Substance use status: in withdrawal Qualified Code(s): F17.213 - Nicotine dependence, cigarettes, with withdrawal - AMA Did Patient Leave Against Medical Advice: No CIWA Score - CIWA Score Nausea/Vomitin-No Nausea/No Vomiting Muscle Tremors: 2 Anxiety: 1-Mildly Anxious Agitation: 0-Normal Activity Paroxysmal Sweats: No Perspiration Orientation: 0-Oriented Tacttile Disturbances: 0-None Auditory Disturbances: 0-None Visual Disturbances: 0-None Headache: 1-Very Mild CIWA-Ar Total Score: 4 COWS (PN) - Opiate Withdrawal Resting Pulse: 0= [place] 80 or Below Sweatin= No chills or Flushing Restless Observation: 0= Sits Still Pupil Size: 0= Normal to Room Light Bone or Joint Aches: 1= Mild Discomfort Runny Nose/ Eye Tearin= None GI Upset > 30mins: 1= Stomach Cramp Tremor Observation of Outstretched Hands: 1= Tremor [place], Not Seen Yawning Observation: 0= None Anxiety or Irritability: 1=Feels Anxious/Irritable Goose Flesh Skin: 0=Smooth Skin COWS Score: 4
[2020-07-16] MEDS ORDERED: diazePAM 5 MG TABLET PO ONE (06:00)
[2020-07-16] MEDS ORDERED: METHADONE HCL 10 MG TABLET (FOR DETOX USE ONLY) PO ONE (10:00)
[2020-07-17] MEDS ORDERED: METHADONE HCL 5 MG TABLET (FOR DETOX USE ONLY) PO ONE (06:00)
== END 2020-07-15 12:40 | disposition home or self-care (01) | DRG 773 ==
LOC: YASAS 08:10 → Y3N 09:19
PROVIDERS: ADMIT Allergy & Immunology; ATTEND Allergy & Immunology
PROC: HZ2ZZZZ Detoxification Services for Substance Abuse Treatment (ICD-10-PCS; principal; 2020-07-12)
DX: F11.23 Opioid dependence with withdrawal (principal); F13.230 Sedative, hypnotic or anxiolytic dependence with withdrawal, uncomplicated; F17.210 Nicotine dependence, cigarettes, uncomplicated; F19.24 Other psychoactive substance dependence with psychoactive substance-induced mood disorder; F19.282 Other psychoactive substance dependence with psychoactive substance-induced sleep disorder; F51.05 Insomnia due to other mental disorder; F41.9 Anxiety disorder, unspecified; J45.20 Mild intermittent asthma, uncomplicated; B18.2 Chronic viral hepatitis C; Z91.5 Personal history of self-harm; Z56.0 Unemployment, unspecified; Z59.0 Homelessness
CPT/HCPCS: 36415; 80053; 81003; 85027; 86780; C9803; U0003

== ENCOUNTER 2020-08-13 08:27 | Inpatient (IN) | payer OTHER ==
[2020-08-13 09:27] VITALS: BMI 31.8
[2020-08-13] MEDS ORDERED: diazePAM 5 MG TABLET PO PRN (10:06)
[2020-08-13] MEDS ORDERED: ONDANSETRON *ODT* 4 MG TABLET SL PRN (10:06)
[2020-08-13] MEDS ORDERED: MAGNESIUM HYDROX 2400MG/30ML ORAL SUSPENSION 30 ML CUP PO PRN (10:06)
[2020-08-13] MEDS ORDERED: MENTHOL/PHENOL 1 EACH UD MM PRN (10:06)
[2020-08-13] MEDS ORDERED: MAGNESIUM CITRATE 300 ML BOTTLE PO PRN (10:06)
[2020-08-13] MEDS ORDERED: NICOTINE POLACRILEX 2 MG GUM BUC PRN (10:06)
[2020-08-13] MEDS ORDERED: BISMUTH SUBSALICYLATE 262 MG/15 ML BTL PO PRN (10:06)
[2020-08-13] MEDS ORDERED: IBUPROFEN 400 MG TABLET (FP) PO PRN (10:06)
[2020-08-13] MEDS ORDERED: MAG HYDROX/AL HYDROX/SIMETH 30 ML UNIT-DOSE CUP PO PRN (10:06)
[2020-08-13] MEDS ORDERED: METHADONE HCL 10 MG TABLET (FOR DETOX USE ONLY) PO ONE (10:06)
[2020-08-13] MEDS ORDERED: cloNIDine HCL 0.1 MG TABLET PO PRN (10:06)
[2020-08-13] MEDS ORDERED: ACETAMINOPHEN 325 MG TABLET (FP) PO PRN ×2 (10:06)
[2020-08-13] MEDS ORDERED: METHOCARBAMOL 500 MG TABLET PO PRN (10:06)
[2020-08-13] MEDS: diazePAM 5 MG TABLET PO SCH ×3 (11:08→22:02)
[2020-08-13] MEDS: NICOTINE 14 MG/24 HOURS TOPICAL PATCH TD SCH (11:09)
[2020-08-13 12:07] LABS: HEMATOCRIT 37.6 % (35.4-49); HEMOGLOBIN 12.1 GM/dL (11.7-16.9); MCH 25.8 pg (25.7-33.7); MCHC 32.3 g/dl (32.0-35.9); MEAN CELL VOLUME 79.8 fl (80-96); MEAN PLT VOLUME 9.6 fl (7.5-11.1); PLATELET COUNT 200 K/MM3 (134-434); RBC 4.72 M/mm3 (4.00-5.60); RDW 14.7 % (11.9-15.9); WHITE BLOOD COUNT 5.8 K/mm3 (4.0-10.0)
[2020-08-13 12:18] LABS: POTASSIUM 4.2 mmol/L (3.5-5.1)
[2020-08-13 12:19] LABS: ALBUMIN 3.7 g/dl (3.4-5.0); BLOOD UREA NITROGEN 22.9 mg/dL (7-18); CALCIUM 8.8 mg/dL (8.5-10.1)
[2020-08-13 12:23] LABS: CREATININE 0.9 mg/dL (0.55-1.3)
[2020-08-13 12:25] LABS: BILIRUBIN,TOTAL 0.4 mg/dL (0.2-1); TOT PROT 7.6 g/dl (6.4-8.2)
[2020-08-13 13:12] LABS: HIV INTERPRETATION NEGATIVE (NEGATIVE)
[2020-08-13] MEDS ORDERED: hydrOXYzine PAMOATE 25 MG CAPSULE (FP) PO SCH (14:00)
[2020-08-13] MEDS ORDERED: hydrOXYzine PAMOATE 25 MG CAPSULE (FP) PO PRN (14:20)
[2020-08-13] MEDS: MELATONIN 5 MG TABLETS PO SCH (22:01)
[2020-08-13] MEDS: THIAMINE HCL 100 MG TABLET (FP) PO SCH (22:02)
[2020-08-13] MEDS: QUEtiapine FUMARATE 100 MG TABLET (FP) PO SCH (22:03)
[2020-08-14] MEDS: diazePAM 5 MG TABLET PO SCH ×4 (05:21→22:06)
[2020-08-14] MEDS ORDERED: METHADONE HCL 5 MG TABLET (FOR DETOX USE ONLY) ONE (09:11)
[2020-08-14] MEDS ORDERED: METHADONE HCL 10 MG TABLET (FOR DETOX USE ONLY) ONE (09:12)
[2020-08-14] MEDS ORDERED: METHADONE (DETOX) 20 MG, METHADONE (DETOX) 5 MG PO ONE (10:00)
[2020-08-14] MEDS: PRENATAL VITAMINS W/ FOLIC ACID TABLET (FP) PO SCH (10:09)
[2020-08-14] MEDS: NICOTINE 14 MG/24 HOURS TOPICAL PATCH TD SCH (11:16)
[2020-08-14] MEDS: THIAMINE HCL 100 MG TABLET (FP) PO SCH (22:06)
[2020-08-14] MEDS: QUEtiapine FUMARATE 100 MG TABLET (FP) PO SCH (22:06)
[2020-08-14] MEDS: MELATONIN 5 MG TABLETS PO SCH (22:06)
[2020-08-15] MEDS: diazePAM 5 MG TABLET PO SCH ×3 (07:18→22:02)
[2020-08-15] MEDS ORDERED: METHADONE HCL 10 MG TABLET (FOR DETOX USE ONLY) PO ONE (10:00)
[2020-08-15] MEDS: NICOTINE 14 MG/24 HOURS TOPICAL PATCH TD SCH (10:09)
[2020-08-15] MEDS: PRENATAL VITAMINS W/ FOLIC ACID TABLET (FP) PO SCH (10:09)
[2020-08-15] MEDS ORDERED: PNEUMOC 13-VAL CONJ-DIP CRM/PF 0.5 ML DISP.SYRIN IM ONE (12:00)
[2020-08-15] MEDS ORDERED: FLU VACCINE (FLULAVAL) PF 60 MCG/0.5 ML SYRINGE 2020-2021 IM ONE (12:00)
[2020-08-15] MEDS ORDERED: PNEUMOCOCCAL 23 VACCINE 0.5 ML VIAL IM ONE (12:00)
[2020-08-15] MEDS: THIAMINE HCL 100 MG TABLET (FP) PO SCH (22:02)
[2020-08-15] MEDS: MELATONIN 5 MG TABLETS PO SCH (22:03)
[2020-08-15] MEDS: QUEtiapine FUMARATE 100 MG TABLET (FP) PO SCH (22:03)
[2020-08-16] MEDS ORDERED: diazePAM 5 MG TABLET PO SCH (06:00)
[2020-08-16] MEDS ORDERED: METHADONE HCL 5 MG TABLET (FOR DETOX USE ONLY) ONE (09:20)
[2020-08-16] MEDS ORDERED: METHADONE HCL 10 MG TABLET (FOR DETOX USE ONLY) ONE (09:20)
[2020-08-16 09:25] VITALS: BP 98/55; PULSE 66; TEMP 97.5
[2020-08-16] MEDS ORDERED: METHADONE (DETOX) 10 MG, METHADONE (DETOX) 5 MG PO ONE (10:00)
[2020-08-17] MEDS ORDERED: diazePAM 5 MG TABLET PO ONE (06:00)
[2020-08-17] MEDS ORDERED: METHADONE HCL 10 MG TABLET (FOR DETOX USE ONLY) PO ONE (10:00)
[2020-08-18] MEDS ORDERED: METHADONE HCL 5 MG TABLET (FOR DETOX USE ONLY) PO ONE (06:00)
== END 2020-08-16 10:15 | disposition left against medical advice (07) | DRG 770 ==
LOC: YASAS 08:27 → Y6N 09:50
PROVIDERS: ADMIT Allergy & Immunology; ATTEND Allergy & Immunology
PROC: HZ2ZZZZ Detoxification Services for Substance Abuse Treatment (ICD-10-PCS; principal; 2020-08-13)
DX: F13.230 Sedative, hypnotic or anxiolytic dependence with withdrawal, uncomplicated (principal); F11.23 Opioid dependence with withdrawal; F17.210 Nicotine dependence, cigarettes, uncomplicated; F19.282 Other psychoactive substance dependence with psychoactive substance-induced sleep disorder; F41.9 Anxiety disorder, unspecified; F32.9 Major depressive disorder, single episode, unspecified; J45.909 Unspecified asthma, uncomplicated; B18.2 Chronic viral hepatitis C; Z86.19 Personal history of other infectious and parasitic diseases; Z56.0 Unemployment, unspecified; Z59.0 Homelessness
CPT/HCPCS: 36415; 80053; 85027; 86780; 87389; 93005; 93010; C9803; U0003